=== PATIENT | female | born 1935 | race Caucasian/White ===

== ENCOUNTER 2017-08-11 07:44 | Emergency (ER) | payer OTHER ==
[~2017-08-11] VITALS: Ht 160 cm; Wt 57.2 kg
[~2017-08-11 07:44] MED LIST: ALBUAER2 INH; ARFO15NE INH; ASPI81TA28 PO; CALCTAB7 PO; CYAN100020 PO; DILT240C74 PO; DOCU100C31 PO; FEXO1TAB46 PO; FURO20TA PO; GUAI1TAB55 PO; LISI-789 PO; MULT-190 PO; MULTTAB5 PO; OMEG10007 PO; OXGN; PLMINSR5 INH; POLY335025 PO; UMEC1INH INH; ZLF/100 PO; ZTHM250 PO
[2017-08-11 07:49] VITALS: TEMP 36.4; Ht 160 cm; Wt 57.2 kg
[2017-08-11] MEDS ORDERED: DILT240C48 PO (08:01)
[2017-08-11] MEDS ORDERED: DORZ2SOL17 OP (08:03)
[2017-08-11] MEDS ORDERED: BRIM0.1S OP (08:03)
[2017-08-11] MEDS ORDERED: DOCU-94 PO (08:16)
[2017-08-11] MEDS ORDERED: MULTCHW PO (08:19)
--- NOTE | 2017-08-11 08:59 | DIAGNOSTIC IMAGING REPORT ---
RIGHT PELVIS/UNILATERAL HIP 1 VIEW CLINICAL HISTORY: Fall with right hip pain. COMPARISON STUDY: Pelvis 03/28/2013. FINDINGS: The patient's overlapping skinfolds result in suboptimal evaluation of the right hip. However, there is no fracture or dislocation within the pelvis or hips. The bones are osteopenic. Vascular calcifications are noted. The sacrum is intact. Mild degenerative changes within the bilateral hips. IMPRESSION: No definite acute fracture or dislocation within the pelvis or hips. Electronically signed by: Ra Kulkarni M.D. 08/11/2017 8:57 AM Dictated Date/Time: 08/11/2017 8:55 AM
--- NOTE | 2017-08-11 09:30 | EMERGENCY ROOM VISIT NOTE ---
History Report prepared by Clyde: Gali Soliman Under the Supervision of: Dr. Cem Jain D.O. First contact with patient: 07:49 Chief Complaint: FALL Stated Complaint: FALL History of Present Illness The patient is an 82 year old female who presents to the Emergency Room with complaints of a sudden fall that occurred this morning. Per the patient's daughter, the patient has a history of dementia and lives at home alone. She notes that the patient was found after she had slid out of bed. The patient's daughter reports that she got the patient up off the floor into the bathroom, but she notes that the patient complained of pain to the left side of her body. She reports that the patient was leaning to the left side while in the bathroom. The patient's daughter states that the patient was fine last evening. She reports that the patient has a history of MS. The patient's daughter states that the patient cannot stand alone. She reports that when the patient does not wear her oxygen normally, she will have a left facial droop, noting that she had that prior to arrival. The patient denies any current complaints. Source of History: patient, family (daughter) Onset: this morning Position: other (global) Quality: other (fall) Timing: other (sudden) Review of Systems See HPI for pertinent positives & negatives. A total of 10 systems reviewed and were otherwise negative. Past Medical & Surgical Medical Problems: (1) AAA (abdominal aortic aneurysm) (2) CKD (chronic kidney disease), stage III (3) COPD exacerbation (4) COPD, severe (5) Dyslipidemia (6) HTN (hypertension) (7) Multiple sclerosis (8) Osteoporosis Surgical Problems: (1) H/O tubal ligation (2) History of appendectomy (3) S/P tonsillectomy Family History Noncontributory secondary to age Social History Smoking Status: Never Smoker Drug Use: none Housing Status: lives alone Current/Historical Medications Scheduled Arformoterol Tartrate (Brovana), 15 MCG INH BID Aspirin (Aspirin Ec), 81 MG PO QAM Brimonidine Tartrate (Alphagan P Oph), 1 DROP OP BID Budesonide (Pulmicort Respules 0.5MG/2ML), 2 ML INH BID Calcium Carbonate-Vitamin D W/ (Caltrate 600 Plus), 1 TABLET PO QAM Diltiazem Hcl Coated Beads (Cartia Xt), 1 CAP PO QAM Docusate Sodium (Colace), 1 CAP PO BID Dorzolamide Hcl (Trusopt Oph), 1 DROPS OP BID Fish Oil ([place]-3), 1 CAPSULE PO QAM Furosemide (Lasix), 20 MG PO QAM Home O2 Therapy (Oxygen), 2.5 LITERS NA CONTINOUS Lisinopril (Zestril), 2.5 MG PO QAM Multiple Vitamins W/ Minerals (Centrum Silver), 1 TAB PO QAM Sertraline HCl (Sertraline HCl), 100 MG PO QAM Umeclidinium [place] (Incruse Ellipta), 1 INHA INH QAM Allergies Coded Allergies: Penicillins (Verified Allergy, Mild, HIVES, 08/11/17) Benzodiazepines (Verified Allergy, Unknown, UNKNOWN, 08/11/17) Cat Dander (Verified Allergy, Unknown, Unknown rxn, 08/11/17) Fluticasone (Verified Allergy, Unknown, UNKNOWN, 08/11/17) Diazepam (Verified Adverse Reaction, Mild, CRYING, 08/11/17) Physical Exam Vital Signs Date Time Temp Pulse Resp B/P (MAP) Pulse Ox O2 Delivery O2 Flow Rate FiO2 08/11/17 07:49 36.4 87 22 190/102 95 Nasal Cannula 3.0 Physical Exam CONSTITUTIONAL/VITAL SIGNS: Reviewed / noted above. GENERAL: Non-toxic in appearance. INTEGUMENTARY: Warm, dry, and [place]. HEAD: Normocephalic. EYES: without scleral icterus or trauma. ENT/OROPHARYNX: clear and moist. LYMPHADENOPATHY/NECK: Is supple without lymphadenopathy or meningismus. RESPIRATORY: Lungs clear and equal. CARDIOVASCULAR: Regular rate and rhythm. GI/ABDOMEN: Soft and nontender. No organomegaly or pulsatile mass. No rebound or guarding. Normal bowel sounds. EXTREMITIES: Abrasions and contusions noted to the right arm. Small contusion noted to right upper mid posterior ribs. BACK: No CVA tenderness. NEUROLOGICAL: Intact without focal deficits. PSYCHIATRIC: normal affect. MUSCULOSKELETAL: Normally developed with good muscle tone. Medical Decision & Procedures ER Provider Diagnostic Interpretation: X ray results and stated below per my interpretation and radiology interpretation. RIGHT PELVIS/UNILATERAL HIP 1 VIEW CLINICAL HISTORY: Fall with right hip pain. COMPARISON STUDY: Pelvis 03/28/2013. FINDINGS: The patient's overlapping skinfolds result in suboptimal evaluation of the right hip. However, there is no fracture or dislocation within the pelvis or hips. The bones are osteopenic. Vascular calcifications are noted. The sacrum is intact. Mild degenerative changes within the bilateral hips. IMPRESSION: No definite acute fracture or dislocation within the pelvis or hips. Electronically signed by: Ra Kulkarni M.D. 08/11/2017 8:57 AM Dictated Date/Time: 08/11/2017 8:55 AM ED Course 0752: Previous medical records were reviewed. The patient was evaluated in room B7. A complete history and physical examination was performed. 0815: Per nursing staff, the patient complains of right hip pain with standing. 0922: I reevaluated the patient and she is doing well. I discussed the exam findings with her and her family and I discussed the treatment plan. They verbalized complete understanding and agreement. The patient is ready for discharge. Medical Decision Differentials include: Close head injury, intracranial bleed, facial trauma, cervical spine trauma, chest and thoracic trauma, abdominal and intra-abdominal trauma, spine neurologic trauma, and extremity trauma. This is an 82-year-old female who presents to the ED with a chief complaint of a fall at home. The patient had some right hip discomfort. Further details listed above. The patient had an x-ray of her pelvis. This did not show any acute process. Her exam did not reveal any significant injuries other than some abrasions and contusions. The patient is felt to be stable for discharge. Medication Reconcilliation Current Medication List: was personally reviewed by me Blood Pressure Screening Patient's blood pressure: Elevated blood pressure Blood pressure disposition: Referred to PCP Impression Primary Impression: Contusion of multiple sites Scribe Attestation The scribe's documentation has been prepared under my direction and personally reviewed by me in its entirety. I confirm that the note above accurately reflects all work, treatment, procedures, and medical decision making performed by me. Departure Information Dispostion Home / Self-Care Referrals Clarence Cantu M.D. (PCP) Patient Instructions [facility] Additional Instructions Follow-up with your doctor for further care and evaluation in 1-2 days or as needed. Return to the emergency department for worsening or new symptoms or any concerns. You have been examined and treated today on an emergency basis only. This is not a substitute for, or an effort to provide, complete comprehensive medical care. It is impossible to recognize and treat all injuries or illnesses in a single emergency department visit. It is therefore important that you follow up closely with your doctor. Call as soon as possible for an appointment.
[2017-08-11 09:48] VITALS: BP 164/130; PULSE 78; O2SAT 95
== END 2017-08-11 09:49 | disposition home or self-care (01) ==
LOC: EDBD 07:44 → C.EDB 07:48
DX: T14.8 Other injury of unspecified body region (principal); W06.XXXA Fall from bed, initial encounter; I12.9 Hypertensive chronic kidney disease with stage 1 through stage 4 chronic kidney disease, or unspecified chronic kidney disease; N18.3 Chronic kidney disease, stage 3 (moderate); E78.5 Hyperlipidemia, unspecified; J44.9 Chronic obstructive pulmonary disease, unspecified; M81.0 Age-related osteoporosis without current pathological fracture; G35 Multiple sclerosis; Z98.51 Tubal ligation status; Z98.890 Other specified postprocedural states; Z79.82 Long term (current) use of aspirin; Z79.899 Other long term (current) drug therapy; Z88.0 Allergy status to penicillin; Z88.8 Allergy status to other drugs, medicaments and biological substances; Z91.09 Other allergy status, other than to drugs and biological substances

== ENCOUNTER 2017-11-13 10:21 | Inpatient (IN) | payer OTHER ==
[~2017-11-13] VITALS: Ht 165.1 cm; Wt 48.8 kg
[2017-11-13] VITALS (7 sets, daily range): BP systolic 108–137; BP diastolic 54–84; PULSE 46–128; TEMP 36.3–37.6; O2SAT 93–99; Ht 165.1 cm; Wt 48.8 kg
[~2017-11-13 10:21] MED LIST changes: -ALBUAER2 INH; +BRIM0.1S OP; -CYAN100020 PO; +DILT240C48 PO; -DILT240C74 PO; +DOCU-94 PO; -DOCU100C31 PO; +DORZ2SOL17 OP; -FEXO1TAB46 PO; -GUAI1TAB55 PO; -MULT-190 PO; +MULTCHW PO; -MULTTAB5 PO; -POLY335025 PO; -ZTHM250 PO
[2017-11-13] MEDS ORDERED: DILTIAZEM HCL 5 MG/ML 5 ML VIAL ONE (10:27)
[2017-11-13] MEDS ORDERED: DILTIAZEM BOLUS / DRIP IV STA ×2 (10:37→12:53)
[2017-11-13] MEDS ORDERED: GUAI1TAB69 PO (10:42)
[2017-11-13] MEDS ORDERED: FEXO1TAB49 PO (10:42)
[2017-11-13] MEDS ORDERED: CYAN500T PO (10:42)
[2017-11-13] MEDS ORDERED: MULT-190 PO (10:42)
[2017-11-13] MEDS ORDERED: VNTHFA/IN INH (10:42)
[2017-11-13] MEDS ORDERED: DILTIAZEM HCL INJ 125 MG in DEXTROSE 5% 100ML IV PRN (10:45)
[2017-11-13 10:53] LABS: HEMATOCRIT 37.7 % (37-47); MEAN CELL VOLUME 89.5 fL (80-100); MEAN CORPUSCULAR HEMOGLOBIN 29.2 pg (25-34); MEAN CORPUSCULAR HGB CONC 32.6 g/dl (32-36); MEAN PLATELET VOLUME 10.5 fL (7.4-10.4); PLATELET COUNT 188 K/uL (130-400); RED BLOOD COUNT 4.21 M/uL (4.2-5.4)
[2017-11-13 11:08] LABS: PARTIAL THROMBOPLASTIN RATIO 0.9; PROTHROMBIN TIME (PATIENT) 10.7 SECONDS (9.0-12.0)
[2017-11-13 11:09] LABS: ISTAT CREATININE 1.1 mg/dl (0.6-1.3); ISTAT HEMOGLOBIN 11.9 g/dl (12.0-16.0); ISTAT IONIZED CALCIUM 1.17 mmol/l (1.12-1.32)
[2017-11-13 11:16] LABS: CALCIUM 9.2 mg/dl (8.5-10.1); CREATININE 1.2 mg/dl (0.60-1.20); POTASSIUM 4.2 mmol/L (3.5-5.1)
--- NOTE | 2017-11-13 11:25 | DIAGNOSTIC IMAGING REPORT ---
CHEST ONE VIEW PORTABLE HISTORY: Atypical chest pain. COMPARISON: Chest 07/10/2016. FINDINGS: Mild elevation/eventration of the right hemidiaphragm, unchanged. The lungs remain hyperexpanded. The right lung is clear. No pleural effusions. No pneumothorax. The heart is normal in size. Mildly tortuous thoracic aorta. Focal area of interstitial thickening/hazy airspace opacity within the base of the left lower lobe. This is compared to study. IMPRESSION: A new left basilar airspace opacity likely representing a pneumonia. One to 2 month chest x-ray follow-up is recommended to ensure resolution. Electronically signed by: Ra Kulkarni M.D. 11/13/2017 11:24 AM Dictated Date/Time: 11/13/2017 11:21 AM
[2017-11-13 11:28] LABS: BASO % 0.1 %; BASO ABS # 0.02 K/uL (0-0.2); COMPLETE YES; IG% 0.3 %; LYMPH % 1.8 %; LYMPH ABS # 0.33 K/uL (1.2-3.4); MONO % 4.4 %; NEUT % 93.4 %
[2017-11-13 11:39] LABS: MAGNESIUM 2.1 mg/dl (1.8-2.4)
--- NOTE | 2017-11-13 12:12 | DIAGNOSTIC IMAGING REPORT ---
HEAD CT NONCONTRAST CT DOSE: 3610.96 mGy.cm HISTORY: Altered mental status. EVAL FOR BLEED TECHNIQUE: Multiaxial CT images of the head were performed without the use of intravenous contrast. Automated exposure control was utilized for this study. A dose lowering technique was utilized adhering to the principles of ALARA. Comparison: None. Findings: The paranasal sinuses and mastoid air cells are clear. The calvarium and skull base are intact. There is no mass, hematoma, midline shift, acute infarct. White matter hypodensity is nonspecific but suggestive of microvascular ischemic change. The ventricles and sulci demonstrate mild age-related involutional changes. Mild motion artifact. Impression: Motion artifact. No definite acute intracranial abnormality. Electronically signed by: Ra Kulkarni M.D. 11/13/2017 12:11 PM Dictated Date/Time: 11/13/2017 12:05 PM
[2017-11-13] MEDS ORDERED: DIGOXIN IV 250 MCG in SYRINGE 9 ML IV ONE (12:15)
[2017-11-13] MEDS ORDERED: METOPROLOL TARTRATE 25 MG TAB PO STA (12:22)
[2017-11-13] MEDS ORDERED: HEPARIN IV LOW DOSE NO BOLUS STA ×2 (12:53→15:37)
[2017-11-13] MEDS ORDERED: ALUMINUM/MAGNESIUM/SIMETH (MAALOX MAX) 30 ML UDC PO PRN (13:00)
[2017-11-13] MEDS ORDERED: ACETAMINOPHEN 325 MG TAB PO PRN (13:00)
[2017-11-13] MEDS ORDERED: DILTIAZEM HCL 5 MG/ML 5 ML VIAL IV STA (13:00)
[2017-11-13] MEDS ORDERED: ALBUTEROL HFA 8 GM INHALER INH PRN (13:00)
[2017-11-13] MEDS ORDERED: ONDANSETRON INJ 2 MG/ML 2 ML VIAL IV PRN (13:00)
[2017-11-13] MEDS ORDERED: NITROGLYCERIN 0.4 MG SL PER TAB CHARGE SL PRN (13:00)
[2017-11-13] MEDS ORDERED: LEVALBUTEROL/IPRATROPIUM NEB INH PRN (13:00)
[2017-11-13] MEDS ORDERED: HEPARIN 25000 UNIT/500 ML D5W ONE (13:55)
[2017-11-13] MEDS: IPRATROPIUM BROMIDE NEB SOLN 0.02% 2.5 ML VIAL INH PRN (15:28)
[2017-11-13] MEDS: LEVALBUTEROL 1.25MG/0.5ML NEB INH PRN (15:29)
[2017-11-13] MEDS ORDERED: MoRPHine SULFATE 2 MG/ML CARP ONE (15:37)
[2017-11-13] MEDS ORDERED: MoRPHine SULFATE 2 MG/ML CARP IV STA (15:38)
[2017-11-13] MEDS ORDERED: LEVOFLOXACIN / D5W 750 MG in PREMIXED IN D5W 150 ML IV SCH (16:00)
[2017-11-13] MEDS: METHYLPREDNISOLONE IV 40 MG in SYRINGE 0 ML IV SCH (16:00)
--- NOTE | 2017-11-13 16:09 | HISTORY & PHYSICAL EXAMINATION ---
DATE OF ADMISSION: 11/13/2017 CHIEF COMPLAINT: Rapid Afib. HISTORY OF PRESENT ILLNESS: This 82-year-old female with past medical history of significant for hypertension, multiple sclerosis, allergic rhinitis, history of tobacco abuse, history of depression, hyperlipidemia, chronic respiratory failure from COPD and oxygen dependent, glaucoma and macular degeneration presents due to rapid Afib. The patient lives alone. Daughter checks on her everyday in the morning. The patient is on the wheelchair but can transfer to the commode.Daughter brings her food and helps with the medication. Today, when the daughter went to check on her, she was sitting on the commode and was complaining of shortness of breath and she could not get up from the commode. When the EMS was called and was found to be in rapid Afib and was brought into the ER. Her heart rate is 170's. She was started on Cardizem drip. The patient is currently alert and awake, oriented to name and place. She has some dementia and does not know the date. Denies any headaches, could not see well with the eyes because of macular degeneration.On dental soft diet. Currently denies any shortness of breath, occasional cough, no fever, no chills. Denies any chest pain, no nausea, no vomiting, no abdominal pain. Normal bowel and bladder movements. No swelling in the legs. No skin rash. Denies any other complaints. Later on the floor was in respiratory distress and mild agitation. 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 ABg ok. oxygenation fine. Later more restful after a small dose of iv morphine. ALLERGIES: BENZODIAZEPINES, FLOVENT, PENICILLINS. PAST MEDICAL HISTORY: As mentioned above. PAST SURGICAL HISTORY: Colonoscopy with biopsy, cataract surgery, ligation of ovary ducts, appendectomy, tonsillectomy, removal of the pilonidal cyst. MEDICATIONS: The patient is on Ellipta 62.5 mcg inhalation 1 puff daily, Lasix 20 mg p.o. daily, Pulmicort 0.5 mcg inhalation b.i.d., Cardizem-CD 240 mg p.o. daily, lisinopril 2.5 mg p.o. daily, Zoloft 100 mg p.o. daily, brimonidine tartrate 0.1% instill 1 drop in the left eye 3 times daily, Trusopt [place] plus 2% ophthalmic solution, instill 1 drop in the left eye 3 times a day, oxygen 2-3 liters as directed continuous, Brovana 15 mcg inhalation b.i.d., Ocuvite 1 tablet p.o. daily,RA col-rite 100 mg p.o. b.i.d., fish oil 600 mg p.o. daily, Mucinex 600 mg p.o. b.i.d., albuterol 2 puffs every 4 hours, fexofenadine 180 mg p.o. daily, calcium plus D tablet daily, MiraLax daily p.r.n., vitamin B12 250 mcg p.o. daily, Centrum Silver 1 tablet p.o. daily, aspirin 81 mg p.o. daily. FAMILY HISTORY: Significant for father have hypertension. Mother has hypertension. Sister has hypertension and COPD. Brother has asthma and diabetes. Daughter has allergies. SOCIAL HISTORY: Quit smoking in 2005. Prior to that smoked half pack a day for 48 years. No alcohol use. No drug use. Currently lives alone, daughter checks on her daily. REVIEW OF SYMPTOMS: As per HPI. Rest of review of symptoms negative. PHYSICAL EXAMINATION: GENERAL: The patient is old and frail, not in distress. VITAL SIGNS: Temperature 36.5, pulse 163, respiratory rate 29, blood pressure 116/89, oxygen 98% on 3 liters. HEENT: No pallor, no icterus. Pupils equal, round, and reactive to light. Oral mucosa moist. NECK: No JVD, no neck masses, no carotid bruits. CARDIOVASCULAR: S1, S2 heard. Irregular rhythm. Tachycardia. No murmurs appreciated. RESPIRATORY SYSTEM: Normal AP diameter. No accessory muscle use.b/l diminished breath sounds . No wheezing, no crackles. ABDOMEN: Soft, bowel sounds present, nontender. No distention. CENTRAL NERVOUS SYSTEM: Alert and oriented x2. Cranial nerves II-XII grossly intact. Nonfocal. EXTREMITIES: No edema, no erythema. LABS: WBC 17.9, hemoglobin 12.3, hematocrit 37.7, and platelets 188. Sodium 139, potassium 4.2, chloride 102, CO2 30, BUN 20, creatinine 1.2 and serum glucose 180, lactic acid 1.6, calcium 9.2, magnesium 2.1. Point of care troponin less than 0.03. PT 10.7, INR 1, APTT 23.8. IMAGING: Chest x-ray, a new left basilar airspace opacities likely representing a pneumonia, 1-2 month chest followup is recommended to ensure resolution. CT of the head, motion artifact. No definite acute intracranial abnormality seen. EKG: Atrial fibrillation with rate of 159, ST depression in inferior leads, nonspecific T-wave. ASSESSMENT AND PLAN: This is an 82-year-old female presents with rapid atrial fibrillation. 1. Rapid atrial fibrillation, new onset. We will start IV Cardizem drip. We will hold home p.o. Cardizem. Start on Lopressor 25 b.i.d., IV heparin. Follow cardiac enzymes and echocardiogram. Monitor on tele floor. Consult cardiology for further recommendations. 2. Acute on Chronic respiratory failure on home O2 secondary to chronic obstructive pulmonary disease ex PNEUMONIA on cxr and ct scan. . Continue home Ellipta, Pulmicort and Brovana, albuterol p.r.n., Xopenex and ipratropium nebs ATC and p.r.n. Iv steroids and Iv Levaquin. We will monitor. 3. History of hypertension. Continue lisinopril, holding the p.o. Cardizem as the patient is started on p.o. Lopressor and IV Cardizem drip. Monitor the blood pressure. 4. History of allergic rhinitis. Continue fexofenadine. 5. History of glaucoma line and macular degeneration. Continue home eyedrops. 6. History of depression. Continue Zoloft. Will Also check for HbA1c levels and fasting lipid profile in a.m. 7. Deep venous thrombosis prophylaxis, on IV heparin. 8. Disposition. We will admit to tele floor. Expect to discharge home and follow with family doctor and cardiology. PT and OT prior to discharge. Social Service to help with discharge planning as the patient lives alone but daughter is helping to take care of the patient. CODE STATUS: DNR as well as per the records and also as per discussion with the daughter. LOTTIE
--- NOTE | 2017-11-13 16:13 | EMERGENCY ROOM VISIT NOTE ---
History Report prepared by Clyde: Florentino Stearns Under the Supervision of: Dr. Dorian Guo M.D. First contact with patient: 10:23 Chief Complaint: IRREGULAR HEARTBEAT Stated Complaint: RAPID AFIB History of Present Illness The patient is an 82 year old female who presents to the Emergency Room via EMS with a generalized weakness this morning. The patient appears to be in atrial fibrillation, but the patient states that she currently does not feel her heart racing, and says that she feels well. She denies any pain, including any chest pain. Per EMS, the patient's pulse has been around 170 to 180, and her systolic blood pressure has been fluctuating between 90 and 140. She is noted to take Diltiazem daily. Per the patient's daughter, she called an ambulance this morning because the patient was too weak to get off the toilet. The patient's daughter does not think that the patient has had atrial fibrillation before, but notes that the patient has an abdominal aortic aneurysm, and gets an ultrasound every 6 months, her next one being next week. The patient did not have her oxygen on this morning, and is usually on 2 to 3 liters. Per the patient's daughter, the patient said that she had a headache this morning, but that is nothing unusual. She was noted to be learning to one side this morning, and that is unusual for the patient. Any fevers, vomiting, or abdominal pain were denied on behalf of the patient. The patient has not had her medications this morning. She has a history of COPD and emphysema. Source of History: patient, EMS Onset: This morning Position: other (heart) Quality: other (irregular heartbeat - appears to be atrial fibrillation) Timing: other (persistent) Associated Symptoms: + weakness, No fevers, No chest pain, No SOB, No vomiting, No abdominal pain Note: Associated symptoms: Patient says she feels well. Pulse 170-180. Systolic blood pressure between 90-140. Review of Systems See HPI for pertinent positives & negatives. A total of 10 systems reviewed and were otherwise negative. Past Medical & Surgical Medical Problems: (1) AAA (abdominal aortic aneurysm) (2) CKD (chronic kidney disease), stage III (3) COPD exacerbation (4) COPD, severe (5) Dyslipidemia (6) HTN (hypertension) (7) Multiple sclerosis (8) Osteoporosis (9) Rapid atrial fibrillation Surgical Problems: (1) H/O tubal ligation (2) History of appendectomy (3) S/P tonsillectomy Family History Noncontributory secondary to age Social History Smoking Status: Never Smoker Drug Use: none Housing Status: lives alone Current/Historical Medications Scheduled Arformoterol Tartrate (Brovana), 15 MCG INH BID Aspirin (Aspirin Ec), 81 MG PO QAM Brimonidine Tartrate (Alphagan P Oph), 1 DROP OP BID Budesonide (Pulmicort Respules 0.5MG/2ML), 2 ML INH BID Calcium Carbonate-Vitamin D W/ (Caltrate 600 Plus), 1 TABLET PO QAM Cyanocobalamin (Vitamin B-12), 500 MCG PO DAILY Diltiazem Hcl Coated Beads (Cartia Xt), 1 CAP PO QAM Docusate Sodium (Colace), 1 CAP PO BID Dorzolamide Hcl (Trusopt Oph), 1 DROPS OP BID Fexofenadine Hcl (Virginie Allergy), 1 TAB PO DAILY Fish Oil ([place]-3), 1 CAPSULE PO QAM Furosemide (Lasix), 20 MG PO QAM Guaifenesin (Mucinex Maximum Strength), 1 TAB PO QAM Home O2 Therapy (Oxygen), 2.5 LITERS NA CONTINOUS Lisinopril (Zestril), 2.5 MG PO QAM Multiple Vitamins W/ Minerals (Centrum Silver), 1 TAB PO QAM Ocuvite Preservision (Ocuvite Preservision), 1 TAB PO DAILY Sertraline HCl (Sertraline HCl), 100 MG PO QAM Umeclidinium [place] (Incruse Ellipta), 1 INHA INH QAM Scheduled PRN Albuterol Hfa (Ventolin Hfa), 2-4 PUFFS INH Q4H PRN for SOB/Wheezing Allergies Coded Allergies: Penicillins (Verified Allergy, Mild, HIVES, 11/13/17) Benzodiazepines (Verified Allergy, Unknown, UNKNOWN, 11/13/17) Cat Dander (Verified Allergy, Unknown, Unknown rxn, 11/13/17) Fluticasone (Verified Allergy, Unknown, UNKNOWN, 11/13/17) Diazepam (Verified Adverse Reaction, Mild, CRYING, 11/13/17) Physical Exam Vital Signs Date Time Temp Pulse Resp B/P (MAP) Pulse Ox O2 Delivery O2 Flow Rate FiO2 11/13/17 12:56 153 23 111/67 96 11/13/17 12:51 157 20 108/88 99 11/13/17 12:46 171 34 115/66 94 11/13/17 12:41 147 22 120/85 92 Nasal Cannula 4.0 11/13/17 12:41 156 23 120/85 100 11/13/17 12:36 154 26 119/92 99 11/13/17 12:31 148 26 119/80 96 11/13/17 12:27 114/55 11/13/17 12:26 162 28 92 11/13/17 12:21 164 20 108/83 94 11/13/17 12:16 169 24 106/72 88 11/13/17 12:11 145 22 81/68 95 11/13/17 12:06 188 23 99/73 91 11/13/17 12:01 163 29 116/89 98 11/13/17 11:57 130/95 11/13/17 11:30 107/77 11/13/17 11:26 156 26 112/78 95 11/13/17 11:21 141 22 119/70 100 11/13/17 11:19 155/127 11/13/17 11:17 99/73 11/13/17 11:16 155 23 100 11/13/17 11:15 119/96 11/13/17 11:13 128/85 11/13/17 11:11 147 34 128/94 100 11/13/17 11:09 98 Nasal Cannula 3.0 11/13/17 11:09 123/75 11/13/17 11:07 111/82 11/13/17 11:06 153 30 100 11/13/17 11:05 119/89 11/13/17 11:03 113/88 11/13/17 11:01 154 32 106/79 97 11/13/17 10:59 115/85 11/13/17 10:57 116/ 11/13/17 10:56 152 33 99 11/13/17 10:55 117/84 11/13/17 10:53 114/91 11/13/17 10:51 153 27 86 11/13/17 10:50 131/96 11/13/17 10:47 116/87 11/13/17 10:46 165 33 83 11/13/17 10:45 36.5 163 22 135/101 98 Nasal Cannula 3.0 11/13/17 10:41 155 22 157/112 84 11/13/17 10:39 128/89 11/13/17 10:37 118/91 11/13/17 10:36 153 25 97 11/13/17 10:35 97/79 11/13/17 10:33 95/74 11/13/17 10:31 155 27 135/85 11/13/17 10:29 162 11/13/17 10:26 137/105 Physical Exam Constitutional: Vital signs reviewed. Eyes: Pupils are equal round reactive to light. Conjunctiva are noninjected. ENT: Pharynx is clear without erythema or exudate. Mucous membranes are moist. Neck supple without meningeal signs. Respiratory: Clear to auscultation bilaterally. Breath sounds are equal bilaterally. Cardiovascular: Tachycardic heart rate of 170. No rubs or gallops. GI: Soft, nondistended and nontender. Bowel sounds are present. Musculoskeletal: No peripheral edema. No lower extremity tenderness. Integumentary: No cyanosis. Neurological: The patient is awake and alert. No focal deficits. Psychiatric: Normal affect. Medical Decision & Procedures ER Provider Diagnostic Interpretation: Radiology results as stated below per my review and the radiologist's interpretation: CHEST ONE VIEW PORTABLE HISTORY: Atypical chest pain. COMPARISON: Chest 07/10/2016. FINDINGS: Mild elevation/eventration of the right hemidiaphragm, unchanged. The lungs remain hyperexpanded. The right lung is clear. No pleural effusions. No pneumothorax. The heart is normal in size. Mildly tortuous thoracic aorta. Focal area of interstitial thickening/hazy airspace opacity within the base of the left lower lobe. This is compared to study. IMPRESSION: A new left basilar airspace opacity likely representing a pneumonia. One to 2 month chest x-ray follow-up is recommended to ensure resolution. Electronically signed by: Ra Kulkarni M.D. 11/13/2017 11:24 AM Dictated Date/Time: 11/13/2017 11:[address]AST CT DOSE: 3610.96 mGy.cm HISTORY: Altered mental status. EVAL FOR BLEED TECHNIQUE: Multiaxial CT images of the head were performed without the use of intravenous contrast. Automated exposure control was utilized for this study. A dose lowering technique was utilized adhering to the principles of ALARA. Comparison: None. Findings: The paranasal sinuses and mastoid air cells are clear. The calvarium and skull base are intact. There is no mass, hematoma, midline shift, acute infarct. White matter hypodensity is nonspecific but suggestive of microvascular ischemic change. The ventricles and sulci demonstrate mild age-related involutional changes. Mild motion artifact. Impression: Motion artifact. No definite acute intracranial abnormality. Electronically signed by: aR Kulkarni M.D. 11/13/2017 12:11 PM Dictated Date/Time: 11/13/2017 12:05 PM Laboratory Results 11/13/17 10:40 Red Blood Count 4.21, Mean Corpuscular Volume 89.5, Mean Corpuscular Hemoglobin 29.2, Mean Corpuscular Hemoglobin Concent 32.6, Mean Platelet Volume 10.5, Neutrophils (%) (Auto) 93.4, Lymphocytes (%) (Auto) 1.8, Monocytes (%) (Auto) 4.4, Eosinophils (%) (Auto) 0.0, Basophils (%) (Auto) 0.1, Neutrophils # (Auto) 16.70, Lymphocytes # (Auto) 0.33, Monocytes # (Auto) 0.79, Eosinophils # (Auto) 0.00, Basophils # (Auto) 0.02 11/13/17 10:40 Test 11/13/17 10:40 11/13/17 10:44 11/13/17 10:56 11/13/17 10:57 White Blood Count 17.90 K/uL (4.8-10.8) Red Blood Count 4.21 M/uL (4.2-5.4) Hemoglobin 12.3 g/dL (12.0-16.0) Hematocrit 37.7 % (37-47) Mean Corpuscular Volume 89.5 fL (80-100) Mean Corpuscular Hemoglobin 29.2 pg (25-34) Mean Corpuscular Hemoglobin Concent 32.6 g/dl (32-36) Platelet Count 188 K/uL (130-400) Mean Platelet Volume 10.5 fL (7.4-10.4) Neutrophils (%) (Auto) 93.4 % Lymphocytes (%) (Auto) 1.8 % Monocytes (%) (Auto) 4.4 % Eosinophils (%) (Auto) 0.0 % Basophils (%) (Auto) 0.1 % Neutrophils # (Auto) 16.70 K/uL (1.4-6.5) Lymphocytes # (Auto) 0.33 K/uL (1.2-3.4) Monocytes # (Auto) 0.79 K/uL (0.11-0.59) Eosinophils # (Auto) 0.00 K/uL (0-0.5) Basophils # (Auto) 0.02 K/uL (0-0.2) RDW Standard Deviation 42.0 fL (36.4-46.3) RDW Coefficient of Variation 13.0 % (11.5-14.5) Immature Granulocyte % (Auto) 0.3 % Immature Granulocyte # (Auto) 0.06 K/uL (0.00-0.02) Prothrombin Time 10.7 SECONDS (9.0-12.0) Prothromb Time International Ratio 1.0 (0.9-1.1) Activated Partial Thromboplast Time 23.8 SECONDS (21.0-31.0) Partial Thromboplastin Ratio 0.9 Est Creatinine Clear Calc Drug Dose 30.9 ml/min Estimated GFR () 48.4 Estimated GFR (Non- 41.8 BUN/Creatinine Ratio 17.0 (10-20) Calcium Level 9.2 mg/dl (8.5-10.1) Magnesium Level 2.1 mg/dl (1.8-2.4) Bedside Lactic Acid Venous 1.61 mmol/L (0.90-1.70) Bedside Hemoglobin 11.9 g/dl (12.0-16.0) Bedside Hematocrit 35 % (37-47) Bedside Sodium 140 mEq/L (135-144) Bedside Potassium 4.1 mEq/L (3.3-5.0) Bedside Chloride 100 mEq/L (101-112) Bedside Total CO2 28 mEq/l (24-31) Anion Gap 18.0 mmol/L (16-25) Bedside Blood Urea Nitrogen 22 mg/dl (7-18) Bedside Creatinine 1.1 mg/dl (0.6-1.3) Bedside Glucose (other) 187 mg/dl (70-99) Bedside Ionized Calcium (Johnnie) 1.17 mmol/l (1.12-1.32) Bedside Troponin I < 0.030 ng/ml (0-0.045) Laboratory results as reviewed by me. Medications Administered Medications (Trade) Dose Ordered Sig/Desiree Route Start Time Stop Time Status Last Admin Dose Admin Diltiazem HCl (Cardizem Inj) 25 mg STK-MED ONCE .ROUTE 11/13/17 10:27 11/13/17 10:28 DC 11/13/17 10:27 15 MG Diltiazem HCl 125 mg/Dextrose 125 ml @ 0 mls/hr Q0M PRN IV 11/13/17 10:45 12/13/17 10:44 11/13/17 11:05 10 MLS/HR Metoprolol Tartrate (Lopressor Tab) 25 mg NOW STAT PO 11/13/17 12:22 11/13/17 12:24 DC 11/13/17 12:40 25 MG ECG Indication: palpitations Rate (beats per minute): 159 Rhythm: atrial fibrillation Findings: other (QRS of 138 milliseconds, nonspecific ST T-wave changes) ED Course 1023: The patient was evaluated in room B2. A complete history and physical exam was performed. 1037: Ordered Cardizem Bolus/Drip 1 ea IV. 1059: I reevaluated the patient and her heart rate is now up to the 160s. The Cardizem drip is being started now. I will give another bolus of 10 before the drip. 1211: I reevaluated the patient and her heart rate is now in the 130s to 140s. The patient has no complaints, and has no shortness of breath, chest pain, or dizziness. The patient's daughter notes that the patient appears at baseline. We will load Digoxin and have the patient evaluated for further treatment. The patient and her daughter expressed understanding and agreement with the plan. 1212: I spoke with Dr. Dr. Ramon Muhammad hide measuring machine operator. We discussed the patient and her results. The patient will be further evaluated by Dr. Navarro. 1215: Ordered Digoxin 25 mcg/Syringe 10 ml @ 2 mls/min IV. 1218: I discussed the patient with Dr. Woody Muhammad cardiology - he says to not give the patient Digoxin, but keep the patient on Cardizem and 25 mg of Metoprolol orally. I discussed this with Dr. Navarro and the patient. 1222: Ordered Lopressor Tab 25 mg PO. Medical Decision This is an 82-year-old female presents with generalized weakness. Differential diagnosis includes dysrhythmia, atrial fibrillation with RVR, electrolyte abnormality, acute coronary syndrome, metabolic derangement. I did perform a limited focused review of portions of the patient's old chart on the electronic medical record. The patient has had no recent pertinent visits to this hospital. I did evaluate the patient as noted above. I did obtain history from the patient as well as her daughter. She is presenting with generalized weakness starting this morning. IV access was established. The patient was placed on a continuous quality assurance monitor body. I did order and personally review the patient's 12- lead EKG and chest x-ray as described above. Patient has a fibrillation with RVR. Heart rate is 7160s. I did treat her with several doses of IV diltiazem boluses. She did have some improvement of her symptoms and was started on a Cardizem drip. I did order and review the patient's blood work as noted in the electronic medical record. I did reassess the patient several times. Her heart rate did improve but still is still elevated. I did discuss case with cardiology who recommended placing the patient on a small oral dose of Lopressor. He recommended that we continue the Cardizem drip but not treat her with IV digoxin. I did treat patient with metoprolol 25 mg orally. I did discuss the plan of treatment with the patient and her daughter. I did discuss case with the hospitalist and case repairer. Medication Reconcilliation Current Medication List: was personally reviewed by me Blood Pressure Screening Patient's blood pressure: Elevated blood pressure Consults Time Called: 1210 Consulting Physician: Dr. Ramon Muhammad hide measuring machine operator Returned Call: [address] Ramon Muhammad hide measuring machine operator. We discussed the patient and her results. The patient will be further evaluated by Dr. Navarro. Additional Consults: Time Called: 1215 Consulted Physician: Dr. Woody Muhammad cardiology Returned Call: 1218 Additional Comments: I discussed the patient with Dr. Woody Muhammad cardiology - he says to not give the patient Digoxin, but keep the patient on Cardizem and 25 mg of Metoprolol orally. Impression Primary Impression: Atrial fibrillation with RVR Critical Care I have personally spent 33 minutes of critical care time in the direct management of this patient. This includes bedside care, interpretation of diagnostic studies, and testing, discussion with consultants, patient, and family members, and other required patient management activities. This 33 minutes is in excess of all separately billable procedures. Scribe Attestation The scribe's documentation has been prepared under my direct and personally reviewed by me in its entirety. I confirm that the note above accurately reflects all work, treatment, procedures, and medical decision making performed by me. Departure Information Dispostion Being Evaluated By Hospitalist Referrals Arnulfo Wen, D.O. (PCP) Patient Instructions [facility]
[2017-11-13] MEDS ORDERED: LEVOFLOXACIN CONSULT ACTIVE PRN (16:15)
[2017-11-13] MEDS: HEPARIN 25,000 UNIT/500ML D5W 500 ML IV PRN ×2 (16:32→21:59)
[2017-11-13 16:35] LABS: ARTERIAL BLD GAS O2 SATURATION 97.9 % (90-95); ARTERIAL BLOOD GAS BASE EXCESS 1.7 mEq/L (-9-1.8); ARTERIAL BLOOD GAS HCO3 27 mmol/L (19-24); ARTERIAL BLOOD GAS PO2 107 mm/Hg (80-95); ARTERIAL BLOOD GAS pH 7.39 (7.35-7.45)
[2017-11-13 16:38] LABS: ALLEN TEST POS (POS); O2 ADMINISTRATION 4L
--- NOTE | 2017-11-13 17:35 | DIAGNOSTIC IMAGING REPORT ---
CHEST CTA for PULMONARY ARTERIES CT DOSE: 226.72 mGy.cm HISTORY: Atypical chest pain. Abnormal chest x-ray. TECHNIQUE: Multiaxial CT images of the chest were performed following the intravenous administration of contrast to evaluate the pulmonary arteries. Maximal intensity projection images were also obtained. A dose lowering technique was utilized adhering to the principles of ALARA. COMPARISON STUDY: Chest CTA 06/11/2011. FINDINGS: Partially visualized abdominal aortic aneurysm. This measures up to 3.5 cm in diameter. This is similar in size compared the prior study at this level. Tortuous descending thoracic aorta. No evidence for dissection within the thoracic aorta. The heart is normal in size. Small hiatus hernia. Emphysema. No pneumothorax. Motion artifact. Mild bronchial wall thickening. Small patchy airspace opacity seen within the base of the left lower lobe. The visualized liver, spleen are unremarkable. Bilateral adrenal gland thickening is likely age-related. No mediastinal or hilar lymphadenopathy. Subcentimeter thyroid nodules. Severe compression deformity at T8 and mild compression of deformity at T11 and L1. These are likely old. The T8 compression deformity remains unchanged. Punctate calcified granuloma within the left upper lobe. The left lower lobe subsegmental pulmonary arteries are nondiagnostic. Otherwise, the remaining pulmonary arteries show no filling defects to suggest an embolus. IMPRESSION: 1. No evidence for pulmonary embolus. 2. Small patchy airspace opacity within the base of the left lower lobe which corresponds to the chest x-ray abnormality. This is consistent with a pneumonia. 3. Emphysema. 4. No change in the partially visualized 3.5 cm abdominal aortic aneurysm. Follow-up nonemergent abdominal aortic ultrasound should be performed to completely assess the aneurysm. Electronically signed by: Ra Kulkarni M.D. 11/13/2017 5:34 PM Dictated Date/Time: 11/13/2017 5:25 PM
[2017-11-13] MEDS ORDERED: HALOPERIDOL LACTATE 5 MG/ML 1 ML VIAL IM PRN (18:00)
[2017-11-13] MEDS: IPRATROPIUM BROMIDE NEB SOLN 0.02% 2.5 ML VIAL INH SCH (19:10)
[2017-11-13] MEDS: LEVALBUTEROL 0.63MG/3 ML NEB INH SCH (19:10)
[2017-11-13] MEDS: ARFORMOTEROL TART 15MCG/2ML VIAL INH SCH (19:18)
[2017-11-13] MEDS: BUDESONIDE 0.5 MG/2 ML VIAL (PULMICORT) INH SCH (19:18)
[2017-11-13 20:01] LABS: PARTIAL THROMBOPLASTIN RATIO 1.2
[2017-11-13 20:06] LABS: CKMB/CK RATIO 3.6 (0-3.0)
[2017-11-13] MEDS ORDERED: LEVALBUTEROL/IPRATROPIUM NEB INH SCH (21:00)
[2017-11-13] MEDS: DOCUSATE SODIUM 100 MG CAP PO SCH (21:29)
[2017-11-13] MEDS: METOPROLOL TARTRATE 25 MG TAB PO SCH (21:29)
[2017-11-13] MEDS: DORZOLAMIDE HCL 2% OPH SOLN 10 ML BTL OP SCH (21:29)
[2017-11-13] MEDS ORDERED: HEPARIN IV BOLUS 4,000 UNIT in SYRINGE 0 ML IV ONE (21:45)
[2017-11-14] VITALS (14 sets, daily range): BP systolic 112–139; BP diastolic 65–91; PULSE 63–72; TEMP 36.8–37.3; O2SAT 95–99
[2017-11-14] MEDS: METHYLPREDNISOLONE IV 40 MG in SYRINGE 0 ML IV SCH ×4 (00:19→23:22)
[2017-11-14] MEDS: LEVALBUTEROL 0.63MG/3 ML NEB INH SCH ×4 (01:47→19:16)
[2017-11-14] MEDS: IPRATROPIUM BROMIDE NEB SOLN 0.02% 2.5 ML VIAL INH SCH ×4 (01:47→19:16)
[2017-11-14 03:36] LABS: PARTIAL THROMBOPLASTIN RATIO 4.8
[2017-11-14 05:10] LABS: COMPLETE YES; HEMATOCRIT 31.9 % (37-47); IG% 0.2 %; LYMPH % 3.8 %; LYMPH ABS # 0.41 K/uL (1.2-3.4); MEAN CELL VOLUME 88.9 fL (80-100); MEAN CORPUSCULAR HGB CONC 32.6 g/dl (32-36); MEAN PLATELET VOLUME 9.9 fL (7.4-10.4); MONO % 1.1 %; NEUT % 94.9 %; PLATELET COUNT 178 K/uL (130-400); RED BLOOD COUNT 3.59 M/uL (4.2-5.4); WHITE BLOOD COUNT 10.72 K/uL (4.8-10.8)
[2017-11-14 05:35] LABS: BUN/CREATININE RATIO 23.3 (10-20); CALCIUM 8.4 mg/dl (8.5-10.1); CREATININE 1.15 mg/dl (0.60-1.20); POTASSIUM 3.8 mmol/L (3.5-5.1)
[2017-11-14 05:40] LABS: CHOLESTEROL/HDL RATIO 1.9; CKMB/CK RATIO 3.8 (0-3.0)
[2017-11-14] MEDS: MoRPHine SULFATE 2 MG/ML CARP IV PRN ×2 (06:07→21:10)
[2017-11-14] MEDS: ARFORMOTEROL TART 15MCG/2ML VIAL INH SCH ×2 (07:08→19:16)
[2017-11-14] MEDS: BUDESONIDE 0.5 MG/2 ML VIAL (PULMICORT) INH SCH ×2 (07:09→19:16)
[2017-11-14] MEDS: METOPROLOL TARTRATE 25 MG TAB PO SCH ×2 (08:35→20:45)
[2017-11-14] MEDS: DORZOLAMIDE HCL 2% OPH SOLN 10 ML BTL OP SCH ×2 (08:35→20:46)
[2017-11-14] MEDS: DOCUSATE SODIUM 100 MG CAP PO SCH ×2 (08:36→20:45)
[2017-11-14] MEDS: CYANOCOBALAMIN 500 MCG TAB (VIT B-12) PO SCH (08:36)
[2017-11-14] MEDS: FUROSEMIDE 20 MG TAB PO SCH (08:37)
[2017-11-14] MEDS: CALCIUM 600MG + VIT D 400 IU TAB PO SCH (08:38)
[2017-11-14] MEDS: FEXOFENADINE HCL 180 MG TAB PO SCH (08:38)
[2017-11-14] MEDS: ASPIRIN 81 MG ECTAB PO SCH (08:39)
[2017-11-14] MEDS: CEROVITE ADV FORMULA TAB PO SCH (08:39)
[2017-11-14] MEDS: GUAIFENESIN 600 MG TABCR PO SCH (08:40)
[2017-11-14] MEDS: OMEGA-3 (PURIFIED FISH OIL) 1 GM CAP PO SCH (08:41)
[2017-11-14] MEDS: LISINOPRIL 2.5 MG TAB PO SCH (08:42)
[2017-11-14] MEDS: SERTRALINE HCL 100 MG TAB PO SCH (08:43)
[2017-11-14] MEDS ORDERED: CEROVITE ADV FORMULA TAB PO SCH (09:00)
--- NOTE | 2017-11-14 09:31 | ECHOCARDIOGRAM REPORT ---
*NOTICE TO RECEIVING DEMOCRAT AGENCY This information is strictly Confidential and protected under [place] law. [place] law prohibits you from making any further disclosure of this information unless further disclosure is expressly permitted by the written consent of the person to whom it pertains or is authorized by law. A general authorization for the release of medical or other information is not sufficient for this purpose. Hospital accepts no responsibility if the information is made available to any other person, INCLUDING THE PATIENT. Interpretation Summary * Name: YUE BAXTER Study Date: 11/14/2017 07:00 AM BP: 112/82 mmHg * Patient Location: [id number].2E\S\E208\S\1 HR: 59 * : 1935 (M/d/yyyy) Gender: Female Height: 65 in * Age: 82 yrs Ethnicity: CA Weight: 121 lb * Ordering Physician: Mauro Navarro * Referring Physician: Self, Referred * Performed By: Yoko Taylor RCS * * Reason For Study: A-FIB * BSA: 1.6 m2 * -- Conclusions -- * Small, underfilled LV chamber with mild concentric LVH. * Hyperdynamic LV systolic function, EF >70%. * No segmental left ventricular wall motion abnormalities are noted. * Grade I diastolic dysfunction. * Aortic valve sclerosis moderate, without significant aortic valvular stenosis. * Mild left atrial enlargement. Procedure Details * A complete two-dimensional transthoracic echocardiogram was performed (2D, M-mode, Doppler and color flow Doppler). Left Ventricle * The left ventricular cavity is small. * There is mild concentric left ventricular hypertrophy. * The left ventricle is hyperdynamic. * Ejection Fraction = >70 %. * No segmental left ventricular wall motion abnormalities are noted. * The left ventricular wall motion is normal. Right Ventricle * The right ventricular cavity size is normal (basal dimension <4.2 cm in right ventricular apical 4-chamber view). * The right ventricular systolic function is normal as assessed by tricuspid annular plane systolic excursion (TAPSE) (normal >1.5 cm). Atria * The left atrium is mildly dilated. * Right atrial size is normal. * No ASD detected; PFO is not assessed. Mitral Valve * There is mild mitral annular calcification. * There is no mitral valve stenosis. * There is no mitral regurgitation noted. Tricuspid Valve * The tricuspid valve is normal in structure and function. Aortic Valve * The aortic valve is trileaflet. * Aortic valve sclerosis moderate, without significant aortic valvular stenosis. * There is no significant aortic regurgitation. Pulmonic Valve * The pulmonary valve is not well seen, but the Doppler examination is normal without significant regurgitation or stenosis. Great Vessels * The aortic root is normal size. Pericardium/Pleural * There is no pericardial effusion. Left Ventricular Diastolic Function * Grade I diastolic dysfunction, (abnormal relaxation pattern). MMode 2D Measurements and Calculations IVSd 1.2 cm IVSs 1.3 cm LVIDd 4.0 cm LVIDs 2.4 cm LVPWd 1.3 cm LVPWs 1.5 cm IVS/LVPW 0.94 FS 39.4 % EDV(Teich) 70.3 ml ESV(Teich) 20.8 ml EF(Teich) 70.4 % EDV(cubed) 64.4 ml ESV(cubed) 14.3 ml EF(cubed) 77.7 % % IVS thick 6.5 % % LVPW thick 22.0 % LV mass(C)d 172.5 grams LV mass(C)dI 108.0 grams/m\S\2 LV mass(C)s 109.1 grams LV mass(C)sI 68.3 grams/m\S\2 SV(Teich) 49.5 ml SI(Teich) 31.0 ml/m\S\2 SV(cubed) 50.0 ml SI(cubed) 31.3 ml/m\S\2 Ao root diam 3.0 cm Ao root area 6.8 cm\S\2 LA dimension 3.5 cm LA/Ao 1.2 LVOT diam 1.8 cm LVOT area 2.6 cm\S\2 Doppler Measurements and Calculations MV E max jeremy 110.0 cm/sec MV A max jeremy 113.2 cm/sec MV E/A 0.97 MV P1/2t max jeremy 122.5 cm/sec MV P1/2t 105.8 msec MVA(P1/2t) 2.1 cm\S\2 MV dec slope 339.3 cm/sec\S\2 MV dec time 0.31 sec Ao V2 max 170.0 cm/sec Ao max PG 11.6 mmHg Ao max PG (full) 3.7 mmHg HERBERT(V,A) 2.2 cm\S\2 HERBERT(V,D) 2.2 cm\S\2 LV V1 max PG 7.9 mmHg LV V1 max 140.2 cm/sec PA V2 max 95.8 cm/sec PA max PG 3.7 mmHg PI max jeremy 193.3 cm/sec PI max PG 14.9 mmHg PI dec slope 111.2 cm/sec\S\2 PI P1/2t 509.0 msec TR max jeremy 317.5 cm/sec
[2017-11-14 11:23] LABS: PARTIAL THROMBOPLASTIN RATIO 1.7
--- NOTE | 2017-11-14 11:50 | Progress Note ---
Internal Med Progress Note Date of Service: Nov 14, 2017. Provider Documentation: SUBJECTIVE: The patient was seen and examined Pleasantly confused Feels better this AM SVT converted to SR OBJECTIVE: Vital Signs-as noted below Exam: General-Minimal distress at rest Eyes-normal ENT-normal Neck-supple Lungs-Decreased breath sound with occasional wheezing bilaterally Heart-Regular,no murmur appreciated Abdomen-Benign,no masses,bowel sound present Extremities-No edema Neuro-AA Pleasantly confused Lab data as noted below. ASSESSMENT & PLAN: This is an 82-year-old female presents with rapid atrial fibrillation Rapid atrial fibrillation, new onset Started on IV Cardizem drip and stopped subsequently following conversion to SR Started on Lopressor 25 b.i.d., IV heparin. Serial cardiac enzymes-No ACS Echocardiogram. Small, underfilled LV chamber with mild concentric LVH. * Hyperdynamic LV systolic function, EF >70%. * No segmental left ventricular wall motion abnormalities are noted. * Grade I diastolic dysfunction. * Aortic valve sclerosis moderate, without significant aortic valvular stenosis. * Mild left atrial enlargement. Monitor on tele floor. Cardiology consulted-appreciate input and recommendation Clinically better Acute on Chronic respiratory failure on home O2 Secondary to chronic obstructive pulmonary disease Complicated by PNEUMONIA on cxr and ct scan. Continue home Ellipta, Pulmicort and Brovana, albuterol p.r.n., Xopenex and ipratropium nebs ATC and p.r.n. Iv steroids and Iv Levaquin. History of hypertension. Continue lisinopril, holding the p.o. Cardizem as the patient is started on p.o. Lopressor and IV Cardizem drip. Monitor the blood pressure. History of allergic rhinitis. Continue fexofenadine. History of glaucoma line and macular degeneration. Continue home eyedrops. History of depression. Continue Zoloft. Deep venous thrombosis prophylaxis, on IV heparin. Disposition. We will admit to tele floor. Expect to discharge home and follow with family doctor and cardiology. PT and OT prior to discharge. Social Service to help with discharge planning as the patient lives alone but daughter is helping to take care of the patient. CODE STATUS: DNR as well as per the records and also as per discussion with the daughter by the admitting physician. Discussed with the Daughters Vital Signs: Date Time Temp Pulse Resp B/P (MAP) Pulse Ox O2 Delivery O2 Flow Rate FiO2 12/17/17 14:55 37.1 72 23 122/91 (101) 98 Nasal Cannula 3.0 Humidified Oxygen 11/14/17 12:00 36.8 70 18 138/73 (94) 98 3.0 11/14/17 07:34 63 18 112/82 (92) 95 2.0 11/14/17 07:10 70 16 99 Nasal Cannula 4.0 11/14/17 04:26 37.2 70 23 112/65 (81) 99 Nasal Cannula 4.0 11/14/17 04:00 99 Nasal Cannula 4.0 11/14/17 01:48 66 16 97 Nasal Cannula 4.0 11/14/17 00:01 99 Nasal Cannula 4.0 11/13/17 22:58 37.6 71 20 108/67 (81) 99 Nasal Cannula 4.0 Humidified Oxygen 11/13/17 20:00 99 Nasal Cannula 4.0 11/13/17 19:10 71 21 99 Nasal Cannula 4.0 11/13/17 18:53 36.3 72 24 125/54 (77) 99 Nasal Cannula 4.0 Humidified Oxygen 11/13/17 17:56 67 22 93 Nasal Cannula 4.0 Lab Results: Results Past 24 Hours Test 11/13/17 16:03 11/13/17 16:25 11/13/17 19:29 11/14/17 02:51 Range/Units Bedside Glucose 158 70-90 mg/dl Arterial Blood pH 7.39 7.35-7.45 Arterial Blood Partial Pressure CO2 46 35-46 mmHg Arterial Blood Partial Pressure O2 107 80-95 mm/Hg Arterial Blood HCO3 27 19-24 mmol/L Arterial Blood Oxygen Saturation 97.9 90-95 % Arterial Blood Base Excess 1.7 -9-1.8 mEq/L Arterial Blood Gas Delivery 4L Magdy Test POS POS Activated Partial Thromboplast Time 31.0 125.3 21.0-31.0 SECONDS Partial Thromboplastin Ratio 1.2 4.8 Total Creatine Kinase 75 26-192 U/L Creatine Kinase MB 2.7 0.5-3.6 ng/ml Creatine Kinase MB Ratio 3.6 0-3.0 Troponin I 0.043 0-0.045 ng/ml Test 11/14/17 04:42 11/14/17 11:03 Range/Units White Blood Count 10.72 4.8-10.8 K/uL Red Blood Count 3.59 4.2-5.4 M/uL Hemoglobin 10.4 12.0-16.0 g/dL Hematocrit 31.9 37-47 % Mean Corpuscular Volume 88.9 80-100 fL Mean Corpuscular Hemoglobin 29.0 25-34 pg Mean Corpuscular Hemoglobin Concent 32.6 32-36 g/dl Platelet Count 178 130-400 K/uL Mean Platelet Volume 9.9 7.4-10.4 fL Neutrophils (%) (Auto) 94.9 % Lymphocytes (%) (Auto) 3.8 % Monocytes (%) (Auto) 1.1 % Eosinophils (%) (Auto) 0.0 % Basophils (%) (Auto) 0.0 % Neutrophils # (Auto) 10.17 1.4-6.5 K/uL Lymphocytes # (Auto) 0.41 1.2-3.4 K/uL Monocytes # (Auto) 0.12 0.11-0.59 K/uL Eosinophils # (Auto) 0.00 0-0.5 K/uL Basophils # (Auto) 0.00 0-0.2 K/uL RDW Standard Deviation 42.1 36.4-46.3 fL RDW Coefficient of Variation 13.1 11.5-14.5 % Immature Granulocyte % (Auto) 0.2 % Immature Granulocyte # (Auto) 0.02 0.00-0.02 K/uL Sodium Level 138 136-145 mmol/L Potassium Level 3.8 3.5-5.1 mmol/L Chloride Level 104 98-107 mmol/L Carbon Dioxide Level 28 21-32 mmol/L Anion Gap 6.0 3-11 mmol/L Blood Urea Nitrogen 27 7-18 mg/dl Creatinine 1.15 0.60-1.20 mg/dl Est Creatinine Clear Calc Drug Dose 32.2 ml/min Estimated GFR () 51.0 Estimated GFR (Non- 44.0 BUN/Creatinine Ratio 23.3 10-20 Random Glucose 145 70-99 mg/dl Calcium Level 8.4 8.5-10.1 mg/dl Magnesium Level 2.0 1.8-2.4 mg/dl Total Creatine Kinase 71 26-192 U/L Creatine Kinase MB 2.7 0.5-3.6 ng/ml Creatine Kinase MB Ratio 3.8 0-3.0 Troponin I 0.020 0-0.045 ng/ml Triglycerides Level 45 0-150 mg/dl Cholesterol Level 148 0-200 mg/dl HDL Cholesterol 76 mg/dl LDL Cholesterol, Calculated 63 mg/dl VLDL Cholesterol, Calculated 9 mg/dl Cholesterol/HDL Ratio 1.9 Activated Partial Thromboplast Time 43.4 21.0-31.0 SECONDS Partial Thromboplastin Ratio 1.7
[2017-11-14] MEDS ORDERED: HEPARIN IV BOLUS 2,000 UNIT in SYRINGE 0 ML IV ONE ×2 (12:30→22:00)
[2017-11-14] MEDS: HEPARIN 25,000 UNIT/500ML D5W 500 ML IV PRN ×2 (12:45→22:01)
--- NOTE | 2017-11-14 14:29 | CARDIOLOGY CONSULTATION ---
DATE OF CONSULTATION: 11/14/2017 HISTORY OF PRESENT ILLNESS: Mrs. Ontiveros is a pleasant 82-year-old woman who presented to [facility] Emergency Department on 11/13/2017 with a report of shortness of breath. The patient lives by herself, but her daughter checks on her every morning and gives her medicines. When her daughter came over that morning, she was found sitting on the commode, complaining of shortness of breath. She came to the Emergency Department and upon presentation, she was found to be in atrial fibrillation with rapid ventricular response along with pneumonia on chest x-ray. She was started on a Cardizem drip, which did not improve her heart rates, stayed in the 140s-150s. I was contacted by Dr. Guo, the ER physician at that time and recommended starting the patient on metoprolol 25 mg p.o. in addition to Cardizem drip. The patient was then transferred to the floor and spontaneously converted to normal sinus rhythm. She has also been started on appropriate pulmonary treatment and the patient states her breathing is significantly improved. The patient's daughter is present at the bedside today during the interview. She states that the shortness of breath happened rather suddenly and she has not been feeling that reportedly lately. She did state that she felt her heart racing a little bit while she was short of breath, but it was not the overwhelming symptom that made her uncomfortable. It was just something that she seemed to notice, but since admission she has not felt her heart racing anymore. She also denies any chest pain, lightheadedness, dizziness, or syncope. Of note, the patient lives at home by herself and she is confined to a wheelchair for the vast majority of her time. The patient's daughter notes that the only fall she has had at home is transferring from the bed to the wheelchair in the morning. PAST SURGICAL HISTORY: 1. Colonoscopy. 2. Cataract surgery. 3. Tubal ligation. 4. Appendectomy. 5. Tonsillectomy. 6. Pilonidal cyst removal. PAST MEDICAL ILLNESSES: 1. Hypertension. 2. History of tobacco abuse. 3. COPD. 4. Chronic respiratory failure, on home O2. 5. Multiple sclerosis. 6. Depression. 7. Hyperlipidemia. 8. Glaucoma. 9. Macular degeneration. FAMILY HISTORY: Noncontributory. SOCIAL HISTORY: The patient has a history of tobacco use, quit approximately 10 years ago. Denies any alcohol or recreational drug use. Again, she lives at home by herself. Her daughter checks on her daily. She is wheelchair bound. REVIEW OF SYSTEMS: As per HPI, all other review of systems reviewed and negative at this time. MEDICATIONS AN OUTPATIENT: 1. Aspirin 81 mg daily. 2. Lisinopril 2.5 mg daily. 3. Cardizem-CD 240 mg daily. 4. Lasix 20 mg daily. 5. Nebulizers as needed. 6. Zoloft daily. 7. Fexofenadine daily. PHYSICAL EXAMINATION: VITALS: Temperature 37.2, pulse 70, respiratory rate 12, and blood pressure 112/65. GENERAL: Awake, alert, and oriented x3, cachectic and frail in appearance. No acute distress. HEENT: Normocephalic and atraumatic. Pupils equal, round, and reactive to light and accommodation. Extraocular muscles intact. Anicteric sclerae. Moist mucous membranes. NECK: No JVD and no bruit. CARDIOVASCULAR: Regular. Positive S4. Normal S1 and S2. No S3. 3/6 mid to late systolic ejection murmur greatest at the right sternal border second intercostal space with radiation to bilateral carotids. No rubs. PULMONARY: Diffuse rhonchi and scant wheezing. No rales. ABDOMEN: Bowel sounds x4, soft. No rebound, guarding, or tenderness. No organomegaly. EXTREMITIES: No clubbing, cyanosis or edema. +2 pedal pulses bilaterally. SKIN: Warm and dry. TEST RESULTS: 2D echocardiogram performed today was read as small under filled LV chamber size with mild concentric LVH, hyperdynamic LV systolic function, EF greater than 70%, no segmental left ventricle wall motion abnormalities were noted, grade 1 diastolic dysfunction, moderate aortic valve sclerosis without stenosis, and mild left atrial enlargement. A 12-lead EKG performed in the Emergency Department independently reviewed at this time shows atrial fibrillation with rapid ventricular response at 159 beats per minute. Repeat EKG this a.m. independently reviewed at this time shows normal sinus rhythm at 64 beats per minute, normal axis, normal intervals, and normal study. IMPRESSION: 1. New onset atrial fibrillation. 2. Acute pneumonia. 3. Chronic obstructive pulmonary disease exacerbation secondary to #2. 4. History of chronic obstructive pulmonary disease. 5. History of tobacco abuse. RECOMMENDATIONS: It was my pleasure to see Mrs. Ontiveros in consultation today. The pathophysiology and treatment options for atrial fibrillation were discussed with the patient and her daughter at great lengths. They were counseled that my suspicion at this time is her atrial fibrillation was caused by her acute COPD exacerbation and I am hopeful now that she has converted to sinus rhythm that she will maintain that while on beta july therapy. So we will continue on metoprolol 25 mg b.i.d. Given her very frail stature and her multiple sclerosis, I would prefer to avoid anticoagulation if possible and given the fact that she is back in normal sinus rhythm at this point, I do not believe it is necessary to start it. So, no further cardiac testing or intervention is necessary from a cardiac standpoint. She will be maintained on the metoprolol and aspirin.
[2017-11-14 20:18] LABS: PARTIAL THROMBOPLASTIN RATIO 1.6
[2017-11-15] VITALS (10 sets, daily range): BP systolic 117–160; BP diastolic 68–83; PULSE 56–92; TEMP 36.4–37.1; O2SAT 94–99
[2017-11-15] MEDS: LEVALBUTEROL 0.63MG/3 ML NEB INH SCH ×4 (01:39→19:48)
[2017-11-15] MEDS: IPRATROPIUM BROMIDE NEB SOLN 0.02% 2.5 ML VIAL INH SCH ×4 (01:39→19:48)
[2017-11-15] MEDS: HEPARIN 25,000 UNIT/500ML D5W 500 ML IV PRN (02:36)
[2017-11-15 04:06] LABS: COMPLETE YES; HEMATOCRIT 31.7 % (37-47); IG% 0.4 %; LYMPH % 4.6 %; LYMPH ABS # 0.52 K/uL (1.2-3.4); MEAN CELL VOLUME 88.5 fL (80-100); MEAN CORPUSCULAR HEMOGLOBIN 29.3 pg (25-34); MEAN CORPUSCULAR HGB CONC 33.1 g/dl (32-36); MEAN PLATELET VOLUME 10.6 fL (7.4-10.4); MONO % 4.1 %; NEUT % 90.9 %; PLATELET COUNT 192 K/uL (130-400); RED BLOOD COUNT 3.58 M/uL (4.2-5.4)
[2017-11-15 04:27] LABS: CALCIUM 8.4 mg/dl (8.5-10.1); CREATININE 1.2 mg/dl (0.60-1.20); MAGNESIUM 2.2 mg/dl (1.8-2.4); POTASSIUM 3.9 mmol/L (3.5-5.1)
[2017-11-15 06:53] LABS: ESTIMATED AVERAGE GLUCOSE 117 mg/dl; HA1C FLAG Normal (Normal)
[2017-11-15] MEDS: ARFORMOTEROL TART 15MCG/2ML VIAL INH SCH ×2 (07:08→19:48)
[2017-11-15] MEDS: BUDESONIDE 0.5 MG/2 ML VIAL (PULMICORT) INH SCH ×2 (07:08→19:48)
--- NOTE | 2017-11-15 08:40 | Clinical Documentation Query ---
CLINICAL DOCUMENTATION QUERY Dr. ROBERTS, In your clinical opinion is this patient being managed for: ( + ) Metabolic encephalopathy in the setting of pneumonia and Rapid A fib ( ) Not Agree ( ) Other explanation of clinical findings (Please Explain) ( ) Unable to determine (Please Define) ( ) Need to Discuss The medical record reflects the following clinical findings, treatment, and risk factors. Clinical Indicators: 82 yo female presenting from home where she lives alone. Described as being pleasantly confused. CT head no acute findings. Tachycardic with HR 155, WBC 17.90, tachypeic at times with hypoxia on O2 support Treatment: CT head, 1:1 observation, O2 support, IV levaquin, IV cardizem, IV solumedrol Risk Factors: age, A fib RVR, pneumonia Please clarify and document your clinical opinion in the progress notes and discharge summary. Terms such as "probable", "suspected", "likely", "questionable", "possible", or "still to be ruled out" are acceptable. IF IN AGREEMENT, YOU MUST DOCUMENT ABOVE DIAGNOSTIC STATEMENT IN DAILY PROGRESS NOTES AND DISCHARGE SUMMARY. This document is not part of the patient's record. Thank You, Stephanie Dunbar RN [phone]
[2017-11-15] MEDS: METHYLPREDNISOLONE IV 40 MG in SYRINGE 0 ML IV SCH ×3 (09:39→23:20)
[2017-11-15] MEDS: FUROSEMIDE 20 MG TAB PO SCH (09:40)
[2017-11-15] MEDS: GUAIFENESIN 600 MG TABCR PO SCH (09:40)
[2017-11-15] MEDS: FEXOFENADINE HCL 180 MG TAB PO SCH (09:41)
[2017-11-15] MEDS: CYANOCOBALAMIN 500 MCG TAB (VIT B-12) PO SCH (09:41)
[2017-11-15] MEDS: CEROVITE ADV FORMULA TAB PO SCH (09:41)
[2017-11-15] MEDS: LISINOPRIL 2.5 MG TAB PO SCH (09:41)
[2017-11-15] MEDS: DOCUSATE SODIUM 100 MG CAP PO SCH ×2 (09:41→19:55)
[2017-11-15] MEDS: CALCIUM 600MG + VIT D 400 IU TAB PO SCH (09:42)
[2017-11-15] MEDS: METOPROLOL TARTRATE 25 MG TAB PO SCH ×2 (09:42→19:54)
[2017-11-15] MEDS: SERTRALINE HCL 100 MG TAB PO SCH (09:42)
[2017-11-15] MEDS: DORZOLAMIDE HCL 2% OPH SOLN 10 ML BTL OP SCH ×2 (09:43→19:53)
[2017-11-15] MEDS: ASPIRIN 81 MG ECTAB PO SCH (09:43)
[2017-11-15] MEDS: OMEGA-3 (PURIFIED FISH OIL) 1 GM CAP PO SCH (09:43)
[2017-11-15] MEDS: HEPARIN SOD 5000 UNIT/0.5 ML CARP SQ SCH ×2 (09:45→20:01)
--- NOTE | 2017-11-15 14:31 | Cardiology Follow-Up ---
Subjective Subjective Date of Service: Nov 15, 2017. Pt evaluation today including: conversation w/ patient, physical exam, chart review, lab review, review of studies, review of inpatient medication list Additional Details: Pt seen and examined, now on 1:1 supervision. Denies complaint. Lethargic today. Denies cp, sob, palpitations, lightheadedness or dizziness. Tele reviewed: sinus rhythm without arrhythmia or significant ectopy. Problem List Medical Problems: (1) Atrial fibrillation with RVR Status: Acute (2) Contusion of multiple sites Status: Acute (3) COPD (chronic obstructive pulmonary disease) Status: Acute (4) Hypoxia Status: Acute Review of Systems Respiratory: + shortness of breath, No see HPI, No cough, No sputum, No wheezing, No dyspnea on exertion, No dyspnea at rest, No hemoptysis, No problem reported Cardiac: No see HPI, No chest pain, No orthopnea, No PND, No edema, No claudication, No palpitations, No problem reported Neurologic: + problem reported Psychiatric: + depression symptoms Heme: + problem reported Objective Vital Signs Last Vital Signs Documentation Date Time Temp Pulse Resp B/P (MAP) Pulse Ox O2 Delivery O2 Flow Rate FiO2 11/15/17 12:00 Nasal Cannula 3.0 11/15/17 11:09 36.4 56 18 160/83 (108) 99 Physical Exam: General Appearance: WD/WN, no apparent distress Eyes: bilateral eyes normal inspection, bilateral eyes PERRL, bilateral eyes EOMI ENT: normal ENT inspection, hearing grossly normal, pharynx normal Neck: supple, no adenopathy, thyroid normal, no JVD, no carotid bruits, trachea midline Respiratory/Chest: chest non-tender, lungs clear, normal breath sounds, no respiratory distress, no accessory muscle use Cardiovascular: regular rate, rhythm, no edema, no JVD, no murmur, + gallop/S4 Abdomen: normal bowel sounds, non tender, soft, no organomegaly Extremities: non-tender, normal inspection, no pedal edema, no calf tenderness 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 new onset afib with rvr spontaneously converted to sinus and has remained in sinus nitus event was likely pneumonia will cont metoprolol 25mg po bid today, will change to metoprolol succinate 50mg daily starting 11/16 for ease of use not an ideal coumadin candidate: lives alone, frail, history of MS will not start at this time, patient and daughter agree
--- NOTE | 2017-11-15 14:36 | Progress Note ---
Internal Med Progress Note Date of Service: Nov 15, 2017. Provider Documentation: SUBJECTIVE: The patient was seen and examined Pleasantly confused AF converted to SR and remains in sinus rhythm Complains of some weakness OBJECTIVE: Vital Signs-as noted below Exam: General-No distress at rest Generally weak Eyes-normal ENT-normal Neck-supple Lungs-Decreased breath sound with occasional wheezing bilaterally Heart-Regular,no murmur appreciated Abdomen-Benign,no masses,bowel sound present Extremities-No edema Neuro-AA Pleasantly confused Lab data as noted below. ASSESSMENT & PLAN: This is an 82-year-old female presents with rapid atrial fibrillation Rapid atrial fibrillation, new onset Started on IV Cardizem drip and stopped subsequently following conversion to SR Started on Lopressor 25 b.i.d., IV heparin. Serial cardiac enzymes-No ACS Echocardiogram. Small, underfilled LV chamber with mild concentric LVH. * Hyperdynamic LV systolic function, EF >70%. * No segmental left ventricular wall motion abnormalities are noted. * Grade I diastolic dysfunction. * Aortic valve sclerosis moderate, without significant aortic valvular stenosis. * Mild left atrial enlargement. Monitor on tele floor. Cardiology consulted-appreciate input and recommendation-no anticoagulation and BB to control rhythm and rate Clinically better Will ask for PT/OT and Social Service for D/C planning Pneumonia Acute on Chronic respiratory failure on home O2 Secondary to chronic obstructive pulmonary disease Complicated by PNEUMONIA on cxr and ct scan. Continue home Ellipta, Pulmicort and Brovana, albuterol p.r.n., Xopenex and ipratropium nebs ATC and p.r.n. Iv steroids and Iv Levaquin. No acute respiratory symptoms IV Levaquin changed to Oral Levaquin-total of 7 days Metabolic encephalopathy in the setting of pneumonia and Rapid A fib Pleasantly confused today Clinically getting better History of hypertension. Continue lisinopril, holding the p.o. Cardizem as the patient is started on p.o. Lopressor and IV Cardizem drip. Cardizem stopped subsequently Monitor the blood pressure. History of allergic rhinitis. Continue fexofenadine. History of glaucoma line and macular degeneration. Continue home eyedrops. History of depression. Continue Zoloft. Deep venous thrombosis prophylaxis, on IV heparin. Changed to SQ -prophylactic dose . PT and OT prior to discharge. Social Service to help with discharge planning as the patient lives alone but daughter is helping to take care of the patient. CODE STATUS: DNR as well as per the records and also as per discussion with the daughter by the admitting physician. Discussed with the Daughters Likely to discharge in a day or two Vital Signs: Date Time Temp Pulse Resp B/P (MAP) Pulse Ox O2 Delivery O2 Flow Rate FiO2 11/15/17 14:24 62 16 97 Nasal Cannula 3.0 11/15/17 12:00 Nasal Cannula 3.0 11/15/17 11:09 36.4 56 18 160/83 (108) 99 Nasal Cannula 3.0 11/15/17 08:00 Nasal Cannula 3.0 11/15/17 07:25 37.1 66 20 149/76 (100) 98 Nasal Cannula 3.0 11/15/17 07:20 74 16 98 Nasal Cannula 3.0 11/15/17 04:00 Nasal Cannula 3.0 11/15/17 03:09 36.9 63 17 117/68 (84) 99 Nasal Cannula 3.0 11/15/17 01:39 68 16 98 Nasal Cannula 3.0 11/14/17 23:59 Nasal Cannula 3.0 11/14/17 23:15 37.3 67 17 136/69 (91) 98 Nasal Cannula 3.0 11/14/17 20:00 Nasal Cannula 3.0 11/14/17 19:16 71 16 97 Nasal Cannula 3.0 11/14/17 19:05 37.2 72 22 139/80 (99) 97 Nasal Cannula 3.0 Humidified Oxygen 11/14/17 16:26 68 16 97 Nasal Cannula 3.0 11/14/17 16:00 97 Nasal Cannula 4.0 11/14/17 14:55 37.1 72 23 122/91 (101) 98 Nasal Cannula 3.0 Humidified Oxygen Lab Results: Results Past 24 Hours Test 11/14/17 19:51 11/15/17 03:42 Range/Units Activated Partial Thromboplast Time 42.6 52.6 21.0-31.0 SECONDS Partial Thromboplastin Ratio 1.6 2.0 White Blood Count 11.40 4.8-10.8 K/uL Red Blood Count 3.58 4.2-5.4 M/uL Hemoglobin 10.5 12.0-16.0 g/dL Hematocrit 31.7 37-47 % Mean Corpuscular Volume 88.5 80-100 fL Mean Corpuscular Hemoglobin 29.3 25-34 pg Mean Corpuscular Hemoglobin Concent 33.1 32-36 g/dl Platelet Count 192 130-400 K/uL Mean Platelet Volume 10.6 7.4-10.4 fL Neutrophils (%) (Auto) 90.9 % Lymphocytes (%) (Auto) 4.6 % Monocytes (%) (Auto) 4.1 % Eosinophils (%) (Auto) 0.0 % Basophils (%) (Auto) 0.0 % Neutrophils # (Auto) 10.37 1.4-6.5 K/uL Lymphocytes # (Auto) 0.52 1.2-3.4 K/uL Monocytes # (Auto) 0.47 0.11-0.59 K/uL Eosinophils # (Auto) 0.00 0-0.5 K/uL Basophils # (Auto) 0.00 0-0.2 K/uL RDW Standard Deviation 41.9 36.4-46.3 fL RDW Coefficient of Variation 13.0 11.5-14.5 % Immature Granulocyte % (Auto) 0.4 % Immature Granulocyte # (Auto) 0.04 0.00-0.02 K/uL Sodium Level 138 136-145 mmol/L Potassium Level 3.9 3.5-5.1 mmol/L Chloride Level 105 98-107 mmol/L Carbon Dioxide Level 30 21-32 mmol/L Anion Gap 3.0 3-11 mmol/L Blood Urea Nitrogen 40 7-18 mg/dl Creatinine 1.20 0.60-1.20 mg/dl Est Creatinine Clear Calc Drug Dose 30.9 ml/min Estimated GFR () 48.4 Estimated GFR (Non- 41.8 BUN/Creatinine Ratio 33.0 10-20 Random Glucose 159 70-99 mg/dl Calcium Level 8.4 8.5-10.1 mg/dl Magnesium Level 2.2 1.8-2.4 mg/dl
[2017-11-15] MEDS: LEVOFLOXACIN 750 MG TAB PO SCH (16:18)
[2017-11-15] MEDS: Pt's Own Med: BRIMONIDINE TARTRATE 0.1% OPH SOLN OP SCH (20:43)
[2017-11-16] VITALS (10 sets, daily range): BP systolic 130–152; BP diastolic 60–96; PULSE 53–75; TEMP 36.1–37; O2SAT 91–99
[2017-11-16] MEDS: IPRATROPIUM BROMIDE NEB SOLN 0.02% 2.5 ML VIAL INH SCH ×5 (02:15→19:08)
[2017-11-16] MEDS: LEVALBUTEROL 0.63MG/3 ML NEB INH SCH ×5 (02:15→19:08)
[2017-11-16] MEDS: LEVALBUTEROL 1.25MG/0.5ML NEB INH PRN (02:36)
[2017-11-16] MEDS: IPRATROPIUM BROMIDE NEB SOLN 0.02% 2.5 ML VIAL INH PRN (02:36)
[2017-11-16 05:28] LABS: COMPLETE YES; HEMATOCRIT 33.4 % (37-47); IG% 0.2 %; LYMPH % 5.4 %; MEAN CELL VOLUME 89.3 fL (80-100); MEAN CORPUSCULAR HEMOGLOBIN 29.4 pg (25-34); MEAN CORPUSCULAR HGB CONC 32.9 g/dl (32-36); MEAN PLATELET VOLUME 10.4 fL (7.4-10.4); MONO % 5.7 %; NEUT % 88.7 %; PLATELET COUNT 211 K/uL (130-400); RED BLOOD COUNT 3.74 M/uL (4.2-5.4); WHITE BLOOD COUNT 9.24 K/uL (4.8-10.8)
[2017-11-16 05:43] LABS: PARTIAL THROMBOPLASTIN RATIO 0.9
[2017-11-16 06:00] LABS: BUN/CREATININE RATIO 36.5 (10-20); CALCIUM 8.9 mg/dl (8.5-10.1); CREATININE 1.12 mg/dl (0.60-1.20); MAGNESIUM 2.2 mg/dl (1.8-2.4)
[2017-11-16] MEDS: CEROVITE ADV FORMULA TAB PO SCH (07:34)
[2017-11-16] MEDS: METHYLPREDNISOLONE IV 40 MG in SYRINGE 0 ML IV SCH (07:34)
[2017-11-16] MEDS: METOPROLOL TARTRATE 25 MG TAB PO SCH ×2 (07:34→20:04)
[2017-11-16] MEDS: SERTRALINE HCL 100 MG TAB PO SCH (07:34)
[2017-11-16] MEDS: DOCUSATE SODIUM 100 MG CAP PO SCH ×2 (07:34→20:04)
[2017-11-16] MEDS: CYANOCOBALAMIN 500 MCG TAB (VIT B-12) PO SCH (07:35)
[2017-11-16] MEDS: GUAIFENESIN 600 MG TABCR PO SCH (07:35)
[2017-11-16] MEDS: CALCIUM 600MG + VIT D 400 IU TAB PO SCH (07:35)
[2017-11-16] MEDS: FEXOFENADINE HCL 180 MG TAB PO SCH (07:35)
[2017-11-16] MEDS: ASPIRIN 81 MG ECTAB PO SCH (07:35)
[2017-11-16] MEDS: FUROSEMIDE 20 MG TAB PO SCH (07:35)
[2017-11-16] MEDS: Pt's Own Med: BRIMONIDINE TARTRATE 0.1% OPH SOLN OP SCH (07:36)
[2017-11-16] MEDS: LISINOPRIL 2.5 MG TAB PO SCH (07:36)
[2017-11-16] MEDS: OMEGA-3 (PURIFIED FISH OIL) 1 GM CAP PO SCH (07:36)
[2017-11-16] MEDS: HEPARIN SOD 5000 UNIT/0.5 ML CARP SQ SCH ×2 (07:37→20:05)
[2017-11-16] MEDS: DORZOLAMIDE HCL 2% OPH SOLN 10 ML BTL OP SCH (07:40)
[2017-11-16] MEDS: ARFORMOTEROL TART 15MCG/2ML VIAL INH SCH ×2 (07:44→19:58)
[2017-11-16] MEDS: BUDESONIDE 0.5 MG/2 ML VIAL (PULMICORT) INH SCH ×2 (07:44→19:58)
[2017-11-16] MEDS ORDERED: NURSING VERBAL MED ORDER ONE (08:15)
[2017-11-16] MEDS: DORZOLAMIDE HCL 2% OPH SOLN 10 ML BTL OPL SCH ×2 (09:00→20:03)
[2017-11-16] MEDS: Pt's Own Med: BRIMONIDINE TARTRATE 0.1% OPH SOLN OPL SCH ×2 (09:00→20:03)
--- NOTE | 2017-11-16 10:17 | Progress Note ---
Internal Med Progress Note Date of Service: Nov 16, 2017. Provider Documentation: SUBJECTIVE: Seen and examined at bedside Feels better today Intermittent dry cough Denies SOB, chest pain Mental status seemed to be back to baseline May need rehab placement On chronic Oxygen OBJECTIVE: Vital Signs-as noted below Physical Exam: General Appearance:Thin, no apparent distress Head: normocephalic, Atraumatic Eyes: normal inspection, EOMI, PERRL Neck: supple, Trachea midline Respiratory/Chest: Decreased breath sounds, CTA Cardiovascular: S1, S2, No murmur Abdomen/GI:Soft, Non tender, Bowel sounds present Extremities/Musculoskelatal:normal inspection, no edema Neurologic/Psych:grossly no focal neurological deficits Skin: normal color, warm Lab data as noted below. ASSESSMENT & PLAN: Patient is an 82 yr female presents with rapid atrial fibrillation Afib RVR:new onset Spontaneously converted to Sinus Initially on IV Cardizem drip>>> Metoprolol Serial cardiac enzymes: No ACS ECHO: Small, underfilled LV chamber with mild concentric LVH. * Hyperdynamic LV systolic function, EF >70%. * No segmental left ventricular wall motion abnormalities are noted. * Grade I diastolic dysfunction. * Aortic valve sclerosis moderate, without significant aortic valvular stenosis. * Mild left atrial enlargement. Monitor on tele floor. Appreciate Cardiology Input Not a candidate for anticoagulation Continue BB for rate control Pneumonia Acute on Chronic respiratory failure on chronic home O2 H/O COPD Continue home inhalers PRN nebs Taper Iv steroids Continue PO Levaquin to complete total of 7-10 days Needs Repeat CXR in 1-2 months as outpatient Metabolic Encephalopathy: Likely secondary to pneumonia Mental status seemed to be back to baseline Monitor H/O HTN Continue lisinopril, Metoprolol DC Cardizem H/O allergic rhinitis: Continue fexofenadine. H/O glaucoma line and macular degeneration. Continue home eyedrops. H/O Depression: Continue Zoloft. Abdominal aortic aneurysm: Unchanged (Partially visualized on CT) Needs follow up abdominal aortic ultrasound as outpatient DVT Px: SQ Heparin Disposition: May need rehab placement PT/OT eval Social Service consulted CODE STATUS: DNR Vital Signs: Date Time Temp Pulse Resp B/P (MAP) Pulse Ox O2 Delivery O2 Flow Rate FiO2 11/16/17 08:00 Nasal Cannula 3.0 11/16/17 07:46 75 16 91 Nasal Cannula 3.0 11/16/17 07:16 36.9 65 20 152/84 (106) 94 Nasal Cannula 3.0 11/16/17 04:00 Nasal Cannula 3.0 11/16/17 03:45 36.8 11/16/17 03:45 36.8 67 22 148/67 (94) 97 11/16/17 02:36 62 20 98 Nasal Cannula 3.0 11/15/17 23:59 Nasal Cannula 3.0 11/15/17 23:20 36.8 63 18 141/76 (97) 97 3.0 11/15/17 20:00 Nasal Cannula 3.0 11/15/17 19:52 36.9 70 18 120/71 (87) 94 Nasal Cannula 3.0 11/15/17 19:48 92 16 94 Nasal Cannula 3.0 11/15/17 16:00 Nasal Cannula 3.0 11/15/17 15:22 36.8 64 18 138/75 (96) 98 11/15/17 14:24 62 16 97 Nasal Cannula 3.0 11/15/17 12:00 Nasal Cannula 3.0 11/15/17 11:09 36.4 56 18 160/83 (108) 99 Nasal Cannula 3.0 Lab Results: Results Past 24 Hours Test 11/16/17 05:11 Range/Units White Blood Count 9.24 4.8-10.8 K/uL Red Blood Count 3.74 4.2-5.4 M/uL Hemoglobin 11.0 12.0-16.0 g/dL Hematocrit 33.4 37-47 % Mean Corpuscular Volume 89.3 80-100 fL Mean Corpuscular Hemoglobin 29.4 25-34 pg Mean Corpuscular Hemoglobin Concent 32.9 32-36 g/dl Platelet Count 211 130-400 K/uL Mean Platelet Volume 10.4 7.4-10.4 fL Neutrophils (%) (Auto) 88.7 % Lymphocytes (%) (Auto) 5.4 % Monocytes (%) (Auto) 5.7 % Eosinophils (%) (Auto) 0.0 % Basophils (%) (Auto) 0.0 % Neutrophils # (Auto) 8.19 1.4-6.5 K/uL Lymphocytes # (Auto) 0.50 1.2-3.4 K/uL Monocytes # (Auto) 0.53 0.11-0.59 K/uL Eosinophils # (Auto) 0.00 0-0.5 K/uL Basophils # (Auto) 0.00 0-0.2 K/uL RDW Standard Deviation 42.2 36.4-46.3 fL RDW Coefficient of Variation 13.0 11.5-14.5 % Immature Granulocyte % (Auto) 0.2 % Immature Granulocyte # (Auto) 0.02 0.00-0.02 K/uL Activated Partial Thromboplast Time 24.2 21.0-31.0 SECONDS Partial Thromboplastin Ratio 0.9 Sodium Level 139 136-145 mmol/L Potassium Level 4.0 3.5-5.1 mmol/L Chloride Level 104 98-107 mmol/L Carbon Dioxide Level 31 21-32 mmol/L Anion Gap 4.0 3-11 mmol/L Blood Urea Nitrogen 41 7-18 mg/dl Creatinine 1.12 0.60-1.20 mg/dl Est Creatinine Clear Calc Drug Dose 31.9 ml/min Estimated GFR () 52.6 Estimated GFR (Non- 45.4 BUN/Creatinine Ratio 36.5 10-20 Random Glucose 145 70-99 mg/dl Calcium Level 8.9 8.5-10.1 mg/dl Magnesium Level 2.2 1.8-2.4 mg/dl
--- NOTE | 2017-11-16 11:59 | Cardiology Follow-Up ---
Subjective Subjective Date of Service: Nov 16, 2017. Pt evaluation today including: conversation w/ patient, physical exam, chart review, lab review, review of studies, review of inpatient medication list Additional Details: Pt seen and examined, states that she's a little short of breath at the moment but overall feeling much better. Denies cp, palpitations, lightheadedness or dizziness. Tele reviewed: sinus rhythm without arrhythmia or significant ectopy. Problem List Medical Problems: (1) Atrial fibrillation with RVR Status: Acute (2) Contusion of multiple sites Status: Acute (3) COPD (chronic obstructive pulmonary disease) Status: Acute (4) Hypoxia Status: Acute Review of Systems Respiratory: + shortness of breath, No see HPI, No cough, No sputum, No wheezing, No dyspnea on exertion, No dyspnea at rest, No hemoptysis, No problem reported Cardiac: No see HPI, No chest pain, No orthopnea, No PND, No edema, No claudication, No palpitations, No problem reported Neurologic: + problem reported Psychiatric: + depression symptoms Heme: + problem reported Objective Vital Signs Last Vital Signs Documentation Date Time Temp Pulse Resp B/P (MAP) Pulse Ox O2 Delivery O2 Flow Rate FiO2 11/16/17 08:00 Nasal Cannula 3.0 11/16/17 07:46 75 16 91 11/16/17 07:16 36.9 152/84 (106) Physical Exam: General Appearance: WD/WN, no apparent distress Eyes: bilateral eyes normal inspection, bilateral eyes PERRL, bilateral eyes EOMI ENT: normal ENT inspection, hearing grossly normal, pharynx normal Neck: supple, no adenopathy, thyroid normal, no JVD, no carotid bruits, trachea midline Respiratory/Chest: chest non-tender, lungs clear, normal breath sounds, no respiratory distress, no accessory muscle use Cardiovascular: regular rate, rhythm, no edema, no JVD, no murmur, + gallop/S4 Abdomen: normal bowel sounds, non tender, soft, no organomegaly Extremities: non-tender, normal inspection, no pedal edema, no calf tenderness Neurologic/Psychiatric: rubber compounder mixer II-XII nml as tested, no motor/sensory deficits, alert, normal mood/affect, oriented x 3 Skin: normal color, warm/dry, no rash Lymphatic: no adenopathy Assessment and Plan 1. new onset afib with rvr spontaneously converted to sinus and has remained in sinus nitus event was likely pneumonia cont metoprolol succinate 50mg daily not an ideal coumadin candidate: lives alone, frail, history of MS 2. HTN elevated today can uptitrate lisinopril as needed ok to d/c to home or to medical floor from cardiac standpoint.
[2017-11-17] VITALS (9 sets, daily range): BP systolic 114–152; BP diastolic 65–89; PULSE 52–77; TEMP 36.6–37; O2SAT 92–100
[2017-11-17] MEDS: LEVALBUTEROL 0.63MG/3 ML NEB INH SCH ×4 (02:04→18:55)
[2017-11-17] MEDS: IPRATROPIUM BROMIDE NEB SOLN 0.02% 2.5 ML VIAL INH SCH ×4 (02:04→18:55)
[2017-11-17] MEDS: BUDESONIDE 0.5 MG/2 ML VIAL (PULMICORT) INH SCH ×2 (07:06→18:55)
[2017-11-17] MEDS: ARFORMOTEROL TART 15MCG/2ML VIAL INH SCH ×2 (07:06→18:54)
[2017-11-17 07:23] LABS: PARTIAL THROMBOPLASTIN RATIO 0.9
[2017-11-17] MEDS ORDERED: METHYLPREDNISOLONE IV 40 MG in SYRINGE 0 ML IV SCH (08:00)
[2017-11-17] MEDS: OMEGA-3 (PURIFIED FISH OIL) 1 GM CAP PO SCH (09:00)
[2017-11-17] MEDS: CALCIUM 600MG + VIT D 400 IU TAB PO SCH (09:00)
[2017-11-17] MEDS: Pt's Own Med: BRIMONIDINE TARTRATE 0.1% OPH SOLN OPL SCH ×2 (10:24→20:47)
[2017-11-17] MEDS: DORZOLAMIDE HCL 2% OPH SOLN 10 ML BTL OPL SCH ×2 (10:24→20:46)
[2017-11-17] MEDS: SERTRALINE HCL 100 MG TAB PO SCH (10:25)
[2017-11-17] MEDS: CYANOCOBALAMIN 500 MCG TAB (VIT B-12) PO SCH (10:26)
[2017-11-17] MEDS: ASPIRIN 81 MG ECTAB PO SCH (10:26)
[2017-11-17] MEDS: GUAIFENESIN 600 MG TABCR PO SCH (10:27)
[2017-11-17] MEDS: LISINOPRIL 2.5 MG TAB PO SCH (10:28)
[2017-11-17] MEDS: FEXOFENADINE HCL 180 MG TAB PO SCH (10:29)
[2017-11-17] MEDS: DOCUSATE SODIUM 100 MG CAP PO SCH ×2 (10:29→20:46)
[2017-11-17] MEDS: FUROSEMIDE 20 MG TAB PO SCH (10:29)
[2017-11-17] MEDS: CEROVITE ADV FORMULA TAB PO SCH (10:31)
[2017-11-17] MEDS: METOPROLOL SUCC 50MG EXT REL TAB PO SCH (10:32)
[2017-11-17] MEDS: HEPARIN SOD 5000 UNIT/0.5 ML CARP SQ SCH ×2 (10:33→20:48)
[2017-11-17] MEDS: LEVOFLOXACIN 750 MG TAB PO SCH (10:34)
--- NOTE | 2017-11-17 10:54 | Progress Note ---
Internal Med Progress Note Date of Service: Nov 17, 2017. Provider Documentation: SUBJECTIVE: Seen and examined at bedside "I feel tired but otherwise fine" Denies SOB, chest pain, cough, dizziness On chronic Oxygen OBJECTIVE: Vital Signs-as noted below Physical Exam: General Appearance:Thin, no apparent distress Head: normocephalic, Atraumatic Eyes: normal inspection, EOMI, PERRL Neck: supple, Trachea midline Respiratory/Chest: Decreased breath sounds, CTA Cardiovascular: S1, S2, No murmur Abdomen/GI:Soft, Non tender, Bowel sounds present Extremities/Musculoskelatal:normal inspection, no edema Neurologic/Psych:grossly no focal neurological deficits Skin: normal color, warm Lab data as noted below. ASSESSMENT & PLAN: Patient is an 82 yr female presents with rapid atrial fibrillation Afib RVR:new onset Spontaneously converted to Sinus Initially on IV Cardizem drip>>> Metoprolol Serial cardiac enzymes: No ACS ECHO: Small, underfilled LV chamber with mild concentric LVH. * Hyperdynamic LV systolic function, EF >70%. * No segmental left ventricular wall motion abnormalities are noted. * Grade I diastolic dysfunction. * Aortic valve sclerosis moderate, without significant aortic valvular stenosis. * Mild left atrial enlargement. Monitor on tele floor. Appreciate Cardiology Input Not a candidate for anticoagulation Continue BB for rate control Pneumonia Acute on Chronic respiratory failure on chronic home O2 H/O COPD Continue home inhalers PRN nebs Taper Iv steroids>>PO prednisone taper Continue PO Levaquin to complete total of 7-10 days Needs Repeat CXR in 1-2 months as outpatient Metabolic Encephalopathy: Likely secondary to pneumonia Resolved Monitor H/O HTN Continue lisinopril, Metoprolol DC Cardizem H/O allergic rhinitis: Continue fexofenadine. H/O glaucoma line and macular degeneration. Continue home eyedrops. H/O Depression: Continue Zoloft. Abdominal aortic aneurysm: Unchanged (Partially visualized on CT) Needs follow up abdominal aortic ultrasound as outpatient DVT Px: SQ Heparin Disposition: May need rehab placement PT/OT eval Social Service consulted CODE STATUS: DNR Vital Signs: Date Time Temp Pulse Resp B/P (MAP) Pulse Ox O2 Delivery O2 Flow Rate FiO2 11/17/17 08:00 Nasal Cannula 2.0 11/17/17 07:36 36.6 52 22 142/72 (95) 100 Nasal Cannula 2.0 11/17/17 07:08 54 16 100 Nasal Cannula 2.0 11/17/17 04:10 36.8 57 21 124/66 (85) 100 Humidified Air 2.0 11/17/17 04:00 Nasal Cannula 2.0 11/17/17 02:05 53 16 98 Nasal Cannula 2.0 11/16/17 23:59 Nasal Cannula 2.0 11/16/17 23:12 36.1 53 18 148/70 (96) 94 Nasal Cannula 2.0 11/16/17 20:00 Nasal Cannula 2.0 11/16/17 19:18 37.0 73 26 143/96 (112) 99 Nasal Cannula 11/16/17 19:08 69 18 98 Nasal Cannula 2.0 11/16/17 16:00 Nasal Cannula 2.0 11/16/17 15:20 36.9 60 22 130/60 (83) 99 Nasal Cannula 2.0 11/16/17 14:11 56 16 98 Nasal Cannula 3.0 11/16/17 12:00 Nasal Cannula 2.0 11/16/17 12:00 60 Lab Results: Results Past 24 Hours Test 11/17/17 06:31 Range/Units Activated Partial Thromboplast Time 24.0 21.0-31.0 SECONDS Partial Thromboplastin Ratio 0.9
--- NOTE | 2017-11-17 11:49 | Cardiology Follow-Up ---
Subjective Subjective Date of Service: Nov 17, 2017. Pt evaluation today including: conversation w/ patient, physical exam, chart review, lab review, review of studies, review of inpatient medication list Additional Details: Pt seen and examined, lethargic but without complaint. Denies cp, sob, palpitations, lightheadedness or dizziness. Tele reviewed: sinus rhythm without arrhythmia or significant ectopy. Bradycardia while sleeping into 40's. Problem List Medical Problems: (1) Atrial fibrillation with RVR Status: Acute (2) Contusion of multiple sites Status: Acute (3) COPD (chronic obstructive pulmonary disease) Status: Acute (4) Hypoxia Status: Acute Review of Systems Respiratory: + shortness of breath, No see HPI, No cough, No sputum, No wheezing, No dyspnea on exertion, No dyspnea at rest, No hemoptysis, No problem reported Cardiac: No see HPI, No chest pain, No orthopnea, No PND, No edema, No claudication, No palpitations, No problem reported Neurologic: + problem reported Psychiatric: + depression symptoms Heme: + problem reported Objective Vital Signs Last Vital Signs Documentation Date Time Temp Pulse Resp B/P (MAP) Pulse Ox O2 Delivery O2 Flow Rate FiO2 11/17/17 11:03 37.0 66 20 133/65 (87) 98 Nasal Cannula 2.0 Physical Exam: General Appearance: WD/WN, no apparent distress Eyes: bilateral eyes normal inspection, bilateral eyes PERRL, bilateral eyes EOMI ENT: normal ENT inspection, hearing grossly normal, pharynx normal Neck: supple, no adenopathy, thyroid normal, no JVD, no carotid bruits, trachea midline Respiratory/Chest: chest non-tender, lungs clear, normal breath sounds, no respiratory distress, no accessory muscle use Cardiovascular: regular rate, rhythm, no edema, no JVD, no murmur, + gallop/S4 Abdomen: normal bowel sounds, non tender, soft, no organomegaly Extremities: non-tender, normal inspection, no pedal edema, no calf tenderness Neurologic/Psychiatric: drencher II-XII nml as tested, no motor/sensory deficits, alert, normal mood/affect, oriented x 3 Skin: normal color, warm/dry, no rash Lymphatic: no adenopathy Assessment and Plan 1. new onset afib with rvr spontaneously converted to sinus and has remained in sinus nitus event was likely pneumonia cont metoprolol succinate 50mg daily not an ideal coumadin candidate: lives alone, frail, history of MS bradycardia while asleep not a concern 2. HTN elevated today can uptitrate lisinopril as needed ok to d/c to home or to medical floor from cardiac standpoint.
[2017-11-18] VITALS (9 sets, daily range): BP systolic 137–159; BP diastolic 68–79; PULSE 52–85; TEMP 36.5–37; O2SAT 95–100
[2017-11-18] MEDS: LEVALBUTEROL 0.63MG/3 ML NEB INH SCH ×3 (01:28→14:15)
[2017-11-18] MEDS: IPRATROPIUM BROMIDE NEB SOLN 0.02% 2.5 ML VIAL INH SCH ×3 (01:29→14:15)
[2017-11-18 06:45] LABS: CALCIUM 8.6 mg/dl (8.5-10.1); CREATININE 1.03 mg/dl (0.60-1.20); POTASSIUM 3.5 mmol/L (3.5-5.1)
[2017-11-18] MEDS: ARFORMOTEROL TART 15MCG/2ML VIAL INH SCH (07:22)
[2017-11-18] MEDS: BUDESONIDE 0.5 MG/2 ML VIAL (PULMICORT) INH SCH (07:22)
[2017-11-18] MEDS ORDERED: ENALAPRILAT IV 1.25 MG in DEXTROSE 5% 25ML 25 ML IV ONE (09:53)
--- NOTE | 2017-11-18 10:05 | Progress Note ---
Internal Med Progress Note Date of Service: Nov 18, 2017. Provider Documentation: SUBJECTIVE: Seen and examined at bedside Feels well today Denies SOB, chest pain, cough, dizziness On chronic Oxygen No new complaints OBJECTIVE: Vital Signs-as noted below Physical Exam: General Appearance:Thin, no apparent distress Head: normocephalic, Atraumatic Eyes: normal inspection, EOMI, PERRL Neck: supple, Trachea midline Respiratory/Chest: Decreased breath sounds, CTA Cardiovascular: S1, S2, No murmur Abdomen/GI:Soft, Non tender, Bowel sounds present Extremities/Musculoskelatal:normal inspection, no edema Neurologic/Psych:grossly no focal neurological deficits Skin: normal color, warm Lab data as noted below. ASSESSMENT & PLAN: Patient is an 82 yr female presents with rapid atrial fibrillation Afib RVR:new onset Spontaneously converted to Sinus Initially on IV Cardizem drip>>> Metoprolol Serial cardiac enzymes: No ACS ECHO: Small, underfilled LV chamber with mild concentric LVH. * Hyperdynamic LV systolic function, EF >70%. * No segmental left ventricular wall motion abnormalities are noted. * Grade I diastolic dysfunction. * Aortic valve sclerosis moderate, without significant aortic valvular stenosis. * Mild left atrial enlargement. Monitor on tele floor. Appreciate Cardiology Input Not a candidate for anticoagulation Continue BB for rate control Pneumonia Acute on Chronic respiratory failure on chronic home O2 H/O COPD Continue home inhalers PRN nebs Taper Iv steroids>>continue PO prednisone taper Continue PO Levaquin to complete total of 7-10 days Needs Repeat CXR in 1-2 months as outpatient Metabolic Encephalopathy: Likely secondary to pneumonia Resolved Monitor H/O HTN Continue lisinopril, Metoprolol DC Cardizem Plan to increase lisinopril to 5mg if BP uncontrolled H/O allergic rhinitis: Continue fexofenadine. H/O glaucoma line and macular degeneration. Continue home eyedrops. H/O Depression: Continue Zoloft. Abdominal aortic aneurysm: Unchanged (Partially visualized on CT) Needs follow up abdominal aortic ultrasound as outpatient DVT Px: SQ Heparin CODE STATUS: DNR Disposition: Transfer to medical floor Medically stable. Plan to discharge to rehab facility when approved PT/OT eval Social Service consulted Vital Signs: Date Time Temp Pulse Resp B/P (MAP) Pulse Ox O2 Delivery O2 Flow Rate FiO2 11/18/17 08:20 37.0 58 18 159/68 (98) 100 Nasal Cannula 2.0 11/18/17 07:22 56 16 98 Nasal Cannula 2.0 11/18/17 04:02 37.0 56 16 142/79 (100) 98 Humidified Air 2.0 11/18/17 04:00 Nasal Cannula 2.5 Humidified Air 11/18/17 01:29 60 18 99 Nasal Cannula 2.0 11/17/17 23:59 Nasal Cannula 2.5 Humidified Air 11/17/17 23:18 37.0 70 21 152/89 (110) 92 Humidified Air 2.5 11/17/17 20:00 Nasal Cannula 2.0 11/17/17 19:40 36.7 68 17 122/68 (86) 96 Nasal Cannula 2.0 11/17/17 18:58 77 19 99 Nasal Cannula 2.0 11/17/17 16:00 Nasal Cannula 2.0 11/17/17 15:52 36.8 58 19 114/69 (84) 96 2.0 11/17/17 12:42 Nasal Cannula 2.0 11/17/17 11:03 37.0 66 20 133/65 (87) 98 Nasal Cannula 2.0 Lab Results: Results Past 24 Hours Test 11/18/17 05:43 Range/Units Activated Partial Thromboplast Time 26.5 21.0-31.0 SECONDS Partial Thromboplastin Ratio 1.0 Sodium Level 142 136-145 mmol/L Potassium Level 3.5 3.5-5.1 mmol/L Chloride Level 106 98-107 mmol/L Carbon Dioxide Level 34 21-32 mmol/L Anion Gap 2.0 3-11 mmol/L Blood Urea Nitrogen 32 7-18 mg/dl Creatinine 1.03 0.60-1.20 mg/dl Est Creatinine Clear Calc Drug Dose 31.9 ml/min Estimated GFR () 58.2 Estimated GFR (Non- 50.2 BUN/Creatinine Ratio 31.0 10-20 Random Glucose 103 70-99 mg/dl Calcium Level 8.6 8.5-10.1 mg/dl Magnesium Level 2.0 1.8-2.4 mg/dl
[2017-11-18] MEDS: DORZOLAMIDE HCL 2% OPH SOLN 10 ML BTL OPL SCH (10:24)
[2017-11-18] MEDS: DOCUSATE SODIUM 100 MG CAP PO SCH (10:25)
[2017-11-18] MEDS: Pt's Own Med: BRIMONIDINE TARTRATE 0.1% OPH SOLN OPL SCH (10:25)
[2017-11-18] MEDS: GUAIFENESIN 600 MG TABCR PO SCH (10:25)
[2017-11-18] MEDS: CYANOCOBALAMIN 500 MCG TAB (VIT B-12) PO SCH (10:26)
[2017-11-18] MEDS: CALCIUM 600MG + VIT D 400 IU TAB PO SCH (10:26)
[2017-11-18] MEDS: SERTRALINE HCL 100 MG TAB PO SCH (10:26)
[2017-11-18] MEDS: FUROSEMIDE 20 MG TAB PO SCH (10:26)
[2017-11-18] MEDS: METOPROLOL SUCC 50MG EXT REL TAB PO SCH (10:26)
[2017-11-18] MEDS: ASPIRIN 81 MG ECTAB PO SCH (10:26)
[2017-11-18] MEDS: CEROVITE ADV FORMULA TAB PO SCH (10:26)
[2017-11-18] MEDS: OMEGA-3 (PURIFIED FISH OIL) 1 GM CAP PO SCH (10:27)
[2017-11-18] MEDS: FEXOFENADINE HCL 180 MG TAB PO SCH (10:27)
[2017-11-18] MEDS: HEPARIN SOD 5000 UNIT/0.5 ML CARP SQ SCH (10:28)
[2017-11-18] MEDS: LISINOPRIL 2.5 MG TAB PO SCH (10:30)
[2017-11-18] MEDS ORDERED: POTASSIUM CHLORIDE 10 MEQ TABCR PO ONE (10:30)
--- NOTE | 2017-11-18 10:34 | Cardiology Follow-Up ---
Subjective Subjective Date of Service: Nov 18, 2017. Pt evaluation today including: conversation w/ patient, physical exam, chart review, lab review, review of studies, review of inpatient medication list Additional Details: Pt seen and examined, states that she feels tired today. Otherwise, denies cp, sob, palpitations, lightheadedness or dizziness. Tele reviewed: sinus rhythm with slight sinus bradycardia while sleeping, no arrhythmias. Problem List Medical Problems: (1) Atrial fibrillation with RVR Status: Acute (2) Contusion of multiple sites Status: Acute (3) COPD (chronic obstructive pulmonary disease) Status: Acute (4) Hypoxia Status: Acute Review of Systems Respiratory: + shortness of breath, No see HPI, No cough, No sputum, No wheezing, No dyspnea on exertion, No dyspnea at rest, No hemoptysis, No problem reported Cardiac: No see HPI, No chest pain, No orthopnea, No PND, No edema, No claudication, No palpitations, No problem reported Neurologic: + problem reported Psychiatric: + depression symptoms Heme: + problem reported Objective Vital Signs Last Vital Signs Documentation Date Time Temp Pulse Resp B/P (MAP) Pulse Ox O2 Delivery O2 Flow Rate FiO2 11/18/17 08:20 37.0 58 18 159/68 (98) 100 Nasal Cannula 2.0 Physical Exam: General Appearance: WD/WN, no apparent distress Eyes: bilateral eyes normal inspection, bilateral eyes PERRL, bilateral eyes EOMI ENT: normal ENT inspection, hearing grossly normal, pharynx normal Neck: supple, no adenopathy, thyroid normal, no JVD, no carotid bruits, trachea midline Respiratory/Chest: chest non-tender, lungs clear, normal breath sounds, no respiratory distress, no accessory muscle use Cardiovascular: regular rate, rhythm, no edema, no JVD, no murmur, + gallop/S4 Abdomen: normal bowel sounds, non tender, soft, no organomegaly Extremities: non-tender, normal inspection, no pedal edema, no calf tenderness Neurologic/Psychiatric: inspector repairer II-XII nml as tested, no motor/sensory deficits, alert, normal mood/affect, oriented x 3 Skin: normal color, warm/dry, no rash Lymphatic: no adenopathy Assessment and Plan 1. new onset afib with rvr spontaneously converted to sinus and has remained in sinus nitus event was likely pneumonia cont metoprolol succinate 50mg daily not an ideal coumadin candidate: lives alone, frail, history of MS bradycardia while asleep not a concern 2. HTN improved may uptitrate lisinopril as necessary while following lytes and renal function simultaneously ok to d/c to rehab from cardiac standpoint
[2017-11-18] MEDS ORDERED: TPRSR50 PO (12:46)
[2017-11-18] MEDS ORDERED: PRD10 PO (12:46)
[2017-11-18] MEDS ORDERED: LVQ750 PO (12:46)
--- NOTE | 2017-11-18 12:51 | Discharge Summary ---
Discharge Summary Date of Service Nov 18, 2017. Discharge Summary Admission Date: Nov 13, 2017 at 13:00 Discharge Date: Nov 18, 2017 Discharge Disposition: Rehab Principal Diagnosis: New onset Afib, Pneumonia Procedures: CTA: 1. No evidence for pulmonary embolus. 2. Small patchy airspace opacity within the base of the left lower lobe which corresponds to the chest x-ray abnormality. This is consistent with a pneumonia. 3. Emphysema. 4. No change in the partially visualized 3.5 cm abdominal aortic aneurysm. Follow-up nonemergent abdominal aortic ultrasound should be performed to completely assess the aneurysm. CT Head: Motion artifact. No definite acute intracranial abnormality. CXR: A new left basilar airspace opacity likely representing a pneumonia. One to 2 month chest x-ray follow-up is recommended to ensure resolution. Consultations: Cardiology Pending Studies/Follow-Up: Follow up with your Primary Care Physician in 1 week upon discharge from Rehab Follow up with your End Matcher as needed Complete the antibiotic and prednisone course as prescribed Seek immediate medical attention if your symptoms reoccur or worsen Get repeat Chest X ray in 1-2 months as outpatient as advised Medication Reconciliation New Medications: Levofloxacin (Levofloxacin) 750 Mg Tab 750 MG PO Q2D@1100 for 6 Days, #3 TAB Metoprolol Succinate (Metoprolol Succinate ER) 50 Mg Tabcr 50 MG PO QAM for 30 Days, #30 EA 1 Refill Prednisone (Prednisone) 10 Mg Tab 30 MG PO DAILY for 8 Days, #15 TAB Start taking 30mg daily for 2 days then 20mg for 3 days, then 10mg for 3 days and stop Continued Medications: Albuterol Hfa (Ventolin Hfa) 200 Puffs/51671 Mcg Aers 2-4 PUFFS INH Q4H PRN for SOB/Wheezing, #1 INHALER Arformoterol Tartrate (Brovana) 15 Mcg/2 Ml Neb 15 MCG INH BID Aspirin (Aspirin Ec) 81 Mg Tab 81 MG PO QAM Brimonidine Tartrate (Alphagan P Oph) 0.1 % Nikki 1 DROP OP BID Budesonide (Pulmicort Respules 0.5MG/2ML) 0.5 Mg/2 Ml Nebu 2 ML INH BID Calcium Carbonate-Vitamin D W/ (Caltrate 600 Plus) 1 Tab Tab 1 TABLET PO QAM Cyanocobalamin (Vitamin B-12) 500 Mcg Tab 500 MCG PO DAILY, TAB Docusate Sodium (Colace) 100 Mg Cap 1 CAP PO BID Dorzolamide Hcl (Trusopt Oph) 2 % Nikki 1 DROPS OP BID Fexofenadine Hcl (Virginie Allergy) 180 Mg Tab 1 TAB PO DAILY for 30 Days, #30 TAB 2 Refills Fish Oil ([place]-3) 1 Ea Cap 1 CAPSULE PO QAM Furosemide (Lasix) 20 Mg Tab 20 MG PO QAM Guaifenesin (Mucinex Maximum Strength) 1,200 Mg Tab 1 TAB PO QAM for 7 Days, #7 TAB Home O2 Therapy (Oxygen) Gas 2.5 LITERS NA CONTINOUS Lisinopril (Zestril) 2.5 Mg Tab 2.5 MG PO QAM Multiple Vitamins W/ Minerals (Centrum Silver) 1 Chw Chw 1 TAB PO QAM Ocuvite Preservision (Ocuvite Preservision) 1 Tab Tab 1 TAB PO DAILY, TAB Sertraline HCl (Sertraline HCl) 100 Mg Tab 100 MG PO QAM Umeclidinium [place] (Incruse Ellipta) 62.5 Mcg/Inh Inh 1 INHA INH QAM Discontinued Medications: Diltiazem Hcl Coated Beads (Cartia Xt) 240 Mg Cap 1 CAP PO QAM Admission Information HPI (per Admitting provider): CHIEF COMPLAINT: Rapid Afib. HISTORY OF PRESENT ILLNESS: This 82-year-old female with past medical history of significant for hypertension, multiple sclerosis, allergic rhinitis, history of tobacco abuse, history of depression, hyperlipidemia, chronic respiratory failure from COPD and oxygen dependent, glaucoma and macular degeneration presents due to rapid Afib. The patient lives alone. Daughter checks on her everyday in the morning. The patient is on the wheelchair but can transfer to the commode.Daughter brings her food and helps with the medication. Today, when the daughter went to check on her, she was sitting on the commode and was complaining of shortness of breath and she could not get up from the commode. When the EMS was called and was found to be in rapid Afib and was brought into the ER. Her heart rate is 170's. She was started on Cardizem drip. The patient is currently alert and awake, oriented to name and place. She has some dementia and does not know the date. Denies any headaches, could not see well with the eyes because of macular degeneration.On dental soft diet. Currently denies any shortness of breath, occasional cough, no fever, no chills. Denies any chest pain, no nausea, no vomiting, no abdominal pain. Normal bowel and bladder movements. No swelling in the legs. No skin rash. Denies any other complaints. Later on the floor was in respiratory distress and mild agitation. 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 ABg ok. oxygenation fine. Later more restful after a small dose of iv morphine. Physical Exam (per Admitting): PHYSICAL EXAMINATION: GENERAL: The patient is old and frail, not in distress. VITAL SIGNS: Temperature 36.5, pulse 163, respiratory rate 29, blood pressure 116/89, oxygen 98% on 3 liters. HEENT: No pallor, no icterus. Pupils equal, round, and reactive to light. Oral mucosa moist. NECK: No JVD, no neck masses, no carotid bruits. CARDIOVASCULAR: S1, S2 heard. Irregular rhythm. Tachycardia. No murmurs appreciated. RESPIRATORY SYSTEM: Normal AP diameter. No accessory muscle use.b/l diminished breath sounds . No wheezing, no crackles. ABDOMEN: Soft, bowel sounds present, nontender. No distention. CENTRAL NERVOUS SYSTEM: Alert and oriented x2. Cranial nerves II-XII grossly intact. Nonfocal. EXTREMITIES: No edema, no erythema. Hospital Course Patient is an 82 yr female presents with rapid atrial fibrillation Afib RVR:new onset Spontaneously converted to Sinus Initially on IV Cardizem drip>>> Metoprolol Serial cardiac enzymes: No ACS ECHO: Small, underfilled LV chamber with mild concentric LVH. * Hyperdynamic LV systolic function, EF >70%. * No segmental left ventricular wall motion abnormalities are noted. * Grade I diastolic dysfunction. * Aortic valve sclerosis moderate, without significant aortic valvular stenosis. * Mild left atrial enlargement. Monitor on tele floor. Appreciate Cardiology Input Not a candidate for anticoagulation Continue BB for rate control Pneumonia Acute on Chronic respiratory failure on chronic home O2 H/O COPD Continue home inhalers PRN nebs Taper Iv steroids>>continue PO prednisone taper Continue PO Levaquin to complete total of 7-10 days Needs Repeat CXR in 1-2 months as outpatient Metabolic Encephalopathy: Likely secondary to pneumonia Resolved Monitor H/O HTN Continue lisinopril, Metoprolol DC Cardizem Plan to increase lisinopril to 5mg if BP uncontrolled H/O allergic rhinitis: Continue fexofenadine. H/O glaucoma line and macular degeneration. Continue home eyedrops. H/O Depression: Continue Zoloft. Abdominal aortic aneurysm: Unchanged (Partially visualized on CT) Needs follow up abdominal aortic ultrasound as outpatient DVT Px: SQ Heparin CODE STATUS: DNR Disposition: Transfer to medical floor Medically stable. Plan to discharge to rehab facility when approved PT/OT eval Social Service consulted Total time spent on discharge = 35 minutes This includes examination of the patient, discharge planning, medication reconciliation, and communication with other providers. Discharge Instructions Discharge Instructions Date of Service Nov 18, 2017. Admission Reason for Admission: Rapid Afib Discharge Discharge Diagnosis / Problem: New onset Afib, Pneumonia Discharge Goals Goal(s): Decrease discomfort, Improve function Activity Recommendations Activity Limitations: resume your previous activity Exercise/Sports Limitations: as tolerated . Instructions / Follow-Up Instructions / Follow-Up Follow up with your Primary Care Physician in 1 week upon discharge from Rehab Follow up with your End Matcher as needed Complete the antibiotic and prednisone course as prescribed Seek immediate medical attention if your symptoms reoccur or worsen Get repeat Chest X ray in 1-2 months as outpatient as advised Current Hospital Diet Patient's current hospital diet: AHA Diet (Heart Healthy) Discharge Diet Recommended Diet: AHA Diet (Heart Healthy) Pending Studies Studies pending at discharge: no Laboratory Results Hemoglobin A1c Test 11/14/17 04:42 Range/Units Estimated Average Glucose 117 mg/dl Hemoglobin A1c 5.7 H 4.5-5.6 % Lipid Panel Test 11/14/17 04:42 Range/Units Triglycerides Level 45 0-150 mg/dl Cholesterol Level 148 0-200 mg/dl HDL Cholesterol 76 mg/dl Cholesterol/HDL Ratio 1.9 LDL Cholesterol, Calculated 63 mg/dl Medical Emergencies . Who to Call and When: Medical Emergencies: If at any time you feel your situation is an emergency, please call 911 immediately. . Non-Emergent Contact Non-Emergency issues call your: Primary Care Provider Call Non-Emergent contact if: you have a fever, your pain is not controlled, your pain is worsening, your pain is unusual for you, your pain is concerning you, you have any medication questions Seek immediate medical attention if your symptoms reoccur or worsen . . "Provider Documentation" section prepared by Darrel Obrien. . VTE Core Measure Inpt VTE Proph given/why not?: Unfractionated heparin SQ
[2017-11-18] MEDS ORDERED: ENALAPRILAT IV 1.25 MG in DEXTROSE 5% 25ML 25 ML IV SCH (21:00)
== END 2017-11-18 17:20 | DRG 193 ==
LOC: EDBD 10:21 → C.EDB 10:22 → C.2E 13:00 → EDBEDREQ 13:16 → ENRESERV 13:26 → C.2E 15:04 → ENRESERV 11-18 10:22 → C.4E 11-18 11:34
PROVIDERS: ADMIT Internal Medicine; ATTEND Internal Medicine
DX: J18.9 Pneumonia, unspecified organism (principal); J96.21 Acute and chronic respiratory failure with hypoxia; G93.41 Metabolic encephalopathy; I48.91 Unspecified atrial fibrillation; N18.3 Chronic kidney disease, stage 3 (moderate); J44.9 Chronic obstructive pulmonary disease, unspecified; E78.5 Hyperlipidemia, unspecified; I10 Essential (primary) hypertension; I71.4 Abdominal aortic aneurysm, without rupture; G35 Multiple sclerosis; M81.0 Age-related osteoporosis without current pathological fracture; Z88.0 Allergy status to penicillin; Z87.891 Personal history of nicotine dependence; Z99.81 Dependence on supplemental oxygen; H40.9 Unspecified glaucoma; H35.30 Unspecified macular degeneration